=== PATIENT | male | born 1950 | race Caucasian/White ===

== ENCOUNTER 2024-12-20 06:28 | Day surgery (SDC) | payer MEDICARE, OTHER, SELFPAY ==
[2024-12-18 13:34] VITALS: BMI 26.8
[2024-12-20] VITALS (22 sets, daily range): BP systolic 99–174; BP diastolic 47–88; BMI 26.8
[2024-12-20] MEDS: CYSVIEW KIT 100 MG INTRAVES (07:55)
[2024-12-20] MEDS: NORMOSOL-R/PLASMALYTE-A 1000 IV (08:07)
[2024-12-20] MEDS: SYRINGE NON-PUMP 50 ML IRRIG ×2 (10:31→10:32)
[2024-12-20] MEDS: SYRINGE NON-PUMP 50 MG IRRIG ×2 (10:31→10:32)
[2024-12-20] MEDS: Pyridium 200 MG PO (10:53)
[2024-12-20] MEDS: VALIUM INJECTION 5 MG IV ×3 (10:54→20:09)
[2024-12-20] MEDS: SUBLIMAZE 50 MCG IV ×2 (12:08→12:22)
[2024-12-20] MEDS: DETROL LA 4 MG PO (12:50)
[2024-12-20] MEDS: COLACE 100 MG PO (16:03)
[2024-12-20] MEDS: FLOMAX 0.8 MG PO (17:36)
[2024-12-20] MEDS: NEURONTIN 300 MG PO (21:29)
[2024-12-20 22:46] LABS: Hepatitis B Surface Antigen Negative (Negative)
[2024-12-20 22:55] LABS: HIV Combo Negative (Negative)
[2024-12-20 23:03] LABS: Hepatitis C Antibody Reactive (Negative)
[2024-12-21] MEDS: VALIUM INJECTION 5 MG IV (01:18)
[2024-12-21] MEDS: PEPCID 40 MG PO (01:35)
[2024-12-21 03:09] VITALS: BP 117/55
[2024-12-21] MEDS: COLACE 100 MG PO ×2 (06:17→10:53)
[2024-12-21 07:15] VITALS: BP 126/62
[2024-12-21 07:50] LABS: Hematocrit 33.7 % (39.0-52.0); Hemoglobin 11.9 g/dL (13.0-18.0)
[2024-12-21] MEDS: NORVASC 10 MG PO (08:27)
[2024-12-21] MEDS: MOBIC 15 MG PO (08:27)
[2024-12-21] MEDS: ZESTRIL 10 MG PO (08:27)
[2024-12-21] MEDS: TOPROL XL 100 MG PO (08:27)
[2024-12-21 08:38] LABS: Blood Urea Nitrogen 15 mg/dl (9-20); Calcium 8.5 mg/dl (8.4-10.2); Carbon Dioxide 27 mmol/L (22-30); Chloride 91 mmol/L (98-107); Estimated Creatinine Clearance 117 ml/min; Glucose 104 mg/dl (70-99); Potassium 4.3 mmol/L (3.5-5.1); Sodium 125 mmol/L (135-145); eGFR > 60.00
--- NOTE | 2024-12-21 09:50 | W.PN.URO.CBU ---
Today's Communication / Plan
-
voiding trial then discharge
Assessment / Plan
-
improved
expected degree of hematuria
Diagnosis
-
Date of Service: December 21, 2024
-
Patient Diagnosis: Bladder Cancer s/p TURBT
Post Op Day: 1
Subjective
-
modest pain/catheter bother
Objective
-
Vital Signs
Temp Pulse Resp BP Pulse Ox
98.6 F 76 16 126/62 93
12/21/24 07:15 12/21/24 07:15 12/21/24 07:15 12/21/24 07:15 12/21/24 07:15
Intake and Output
12/20/24 12/21/24 12/22/24
06:59 06:59 06:59
Intake Total 1300 / 1300
Output Total 3175 / 3175
Balance -1875 / -1875
Intake:
Oral fluids 800 / 800
IV fluids (Total) 500 / 500
Normosol 500 / 500
Output:
Urine, Watkins 300 / 300
True Urine Output from CBI 2875 / 2875
Laboratory Results
12/21/24 07:25
12/21/24 07:25
Physical Exam
-
Abdomen - soft, non-tender, positive bowel sounds, no distention
Genitalia - light red outflow with CBI via Watkins
--- NOTE | 2024-12-21 09:57 | CM ---
Cm reviewed medical records. CM met with patient in room. Patient confirmed demographics. Patient lives alone, but his brother will be his ride home and support. Patient does not have a history of VN, SNF or DME.
Patient is active with his PCP. Patient confirmed medication coverage and uses [facility] for medication services. Plan for fung dc and void trial
PLAN: home no needs
[2024-12-21 11:40] VITALS: BP 145/76
[2024-12-21] MEDS: Pyridium 200 MG PO (13:12)
[2024-12-21 14:56] VITALS: BP 154/71
== END 2024-12-21 15:36 | disposition home or self-care (01) ==
LOC: SDS 06:28
PROVIDERS: ATTENDING PHYSICIAN Specialist
DX: C67.9 Malignant neoplasm of bladder, unspecified (principal); N35.919 Unspecified urethral stricture, male, unspecified site
CPT/HCPCS: 52240; 51720; C9738; 88307; 80048; 85014; 85018; 86803; 87340; 87389; A9589; J9201

== ENCOUNTER 2024-12-22 05:55 | Emergency (ER) | payer MEDICARE, OTHER, SELFPAY ==
[2024-12-22 05:57] VITALS: BP 122/79
--- NOTE | 2024-12-22 06:14 | ED.GENMED ---
History of Present Illness
General
Chief Complaint: Urinary Symptoms
Time Seen by Provider: 12/22/24 06:13
History of Present Illness
History of Present Illness:
TIME OF INITIAL ENCOUNTER: 6:25 AM
HPI: The patient had transurethral resection of bladder tumors on 12/20/2024 along with white bluelight cystoscopy as an intravesical chemotherapy instillation. Last night into this morning, he developed urinary retention. He states that he feels
that he has a full bladder. He has been trying to drink fluids to 'flush it out' but has been unable to void other than small drops of blood. He is not on anticoagulation or antiplatelets. No fevers.
EXAM:
GENERAL: Well appearing in no distress
HEENT: Moist oral mucosa
CARDIOVASCULAR: No murmurs, normal heart rate, regular rhythm, No chest wall tenderness
PULMONARY: No respiratory distress, breath sounds are clear and equal
ABDOMEN: Soft with no peritoneal signs, no tenderness, bladder distention noted
NEUROLOGIC: Excellent strength all extremities, no coordination deficits
PSYCHIATRIC: Appropriate mental status, normal insight and judgement
EXTREMITIES: Nontender, no edema, moves all extremities equally
SKIN: No rash, no lesions
NUMBER AND COMPLEXITY OF PROBLEMS ADDRESSED AT THE ENCOUNTER
� Chronic conditions affecting care: High blood pressure, BPH
� Acute Exacerbation and/or Progression of Chronic Illness: This is an acute problem
� Differential Diagnosis includes: Hemorrhagic cystitis, postop complication, postoperative blood clot, urinary retention
AMOUNT AND/OR COMPLEXITY OF DATA TO BE REVIEWED AND ANALYZED
� I performed an independent evaluation of and my interpretation is:
EKG:
CT:
X-rays:
Laboratory Studies: Urinalysis shows greater than 100 red cells and 6-10 cells.
Other:
� Review of other/old records: I reviewed the operative note from Dr. Taveras from 2 days ago.
� Clinical information was obtained by an independent historian: I spoke to at bedside
� Prescriptions/Medications Considered but not given:
� Further testing considered but not performed: No indication for imaging at this time
RISK OF COMPLICATIONS AND/OR MORBIDITY OR MORTALITY OF PATIENT MANAGEMENT
� Social determinants of health affecting care:
� Discussion with other providers: I spoke to Dr. Conley who recommends patient receive a dose of Rocephin before he goes home
� Escalation of care including admission/observation vs risk of discharge considered: Upon arrival, patient had a bladder scan of over [address] Watkins catheter. The patient drained over a liter of bloody urine
however it started pinking up quite a bit try prior to discharge. He appears comfortable on reassessment.
ANY OTHER UPDATES:
Phy Exam
Physical Exam
Physical Exam:
See HPI
Course
Orders/Labs/Results
Orders:
Orders
12/22/24 06:24
Bladder Scan- Treatment ONCE
12/22/24 06:25
Watkins Placement- Treatment ONCE
Reason for insertion: Acute Retention
12/22/24 07:04
Urinalysis Reflex To Culture Urgent
Date Specimen was Collected: 12/22/24
Time Specimen was Collected: 06:56
Urine Microscopic Reflex Cult Urgent
Urine Culture Urgent
LEONOR Source: U
Specimen Description:
Date Specimen was Collected: 12/22/24
Time Specimen was Collected: 06:56
12/22/24 08:50
CefTRIAXone [Rocephin] 1,000 mg IV NOW STA
Abnormal Lab Results
12/22/24
07:04
Ur Occult Blood Reflex 4+ A
(Negative)
Leukocyte Esterase Rfl 3+ A
(Negative)
Urine RBC >100 A /HPF
(0-2)
Urine Albumin (Reflex) 4+ A
(Neg - Trace)
Vital Signs
Initial and Last Documented VS:
Initial Vital Signs
Temp Pulse Resp BP Pulse Ox
36.6 C 78 22 122/79 99
12/22/24 05:57 12/22/24 05:57 12/22/24 05:57 12/22/24 05:57 12/22/24 05:57
Last Documented Vital Signs
Temp Pulse Resp BP Pulse Ox
36.6 C 78 16 122/79 99
12/22/24 05:57 12/22/24 05:57 12/22/24 08:00 12/22/24 05:57 12/22/24 05:57
*Critical Care Note
Total Time (30-74mins, 75-104mins- exclusive of procedures): Not Applicable
ED Attending Note
-
Portions of this chart may have been created with voice recognition software.� Occasional wrong word or��sound alike� substitutions may have occurred due to the inherent limitations of voice recognition software.
Discharge Plan
Departure
Patient Disposition: Home (Routine Discharge)
Date of Disposition: 12/22/24
Time of Disposition: 08:51
Patient with high blood pressure during this ER visit?: Yes
Discharge Problem:
Acute urinary retention
Prescriptions:
No Action
meloxicam 15 mg Tablet
15 mg PO DAILY
metoprolol succinate 100 mg Tablet Extended Release 24 Hr
100 mg PO DAILY
acetaminophen 650 mg Tablet Extended Release
1,300 mg PO Q12H PRN (Reason: Back Paim)
tamsulosin 0.4 mg Capsule
0.8 mg PO QPM
amlodipine 10 mg Tablet
10 mg PO DAILY
lisinopril 10 mg Tablet
10 mg PO DAILY
gabapentin 300 mg Capsule
300 mg PO HS
albuterol sulfate 90 mcg/actuation Hfa Aerosol Inhaler
2 puff INHALATION PRN PRN (Reason: SOBWHeezes)
gabapentin 100 mg Tablet
100 mg PO DAILYPRN PRN (Reason: Pain)
sodium chloride 1,000 mg Tablet,Soluble
1,000 mg PO 7XD
Hyaluronic Acid (chond-collgn) 250 mg capsule
500 mg PO QPM
Uribel Tabs 81.6-0.12-10.8 mg tablet
1 tab PO QID PRN (Reason: bladder irritation/pain) Qty: 40 5RF
Referrals:
Guillermo Taveras MD [Active] - Follow up in 2-3 days
UNKNOWN - PT DOES,NOT KNOW [Family Provider] -
Activity Restrictions/Additional Instructions:
We drained over 1 L of bloody urine today. I spoke to Dr. Conley. He wanted you to get a one-time dose of Rocephin before you go home. However, the urinalysis did not show any obvious signs of infection (relatively low number of white blood
cells in the urine). Follow-up with Dr. Taveras. Return here if worse or other concerns.
Interventions
Interventions:
*Risk Screen - Suicide Last Done: 12/22/24 06:00
*General Assessment Last Done: 12/22/24 06:47
*Neglect/Abuse Screening Last Done: 12/22/24 06:48
*ED- Fall Risk Assessment Last Done: 12/22/24 06:47
*ED COVID-19 Vaccine History Last Done: 12/22/24 06:47
ED-Male Genitourinary Assessment Last Done: 12/22/24 06:41
Discharge Date and Time
Print Language: JAPANESE
[2024-12-22 06:41] VITALS: BMI 28.6
[2024-12-22 08:12] LABS: Urine Albumin 4+ (Neg - Trace); Urine Bilirubin Negative (Negative); Urine Character Bloody (Clear); Urine Color Red; Urine Glucose Negative (Negative); Urine Ketone Negative (Negative); Urine Leukocyte 3+ (Negative); Urine Nitrite Negative (Negative); Urine Occult Blood 4+ (Negative); Urine Urobilinogen Negative (Neg - 1+)
[2024-12-22 08:36] LABS: Urine Red Blood Cell >100 /HPF (0-2); Urine Squamous Cell 0-2 /LPF (Few)
[2024-12-22] MEDS: ROCEPHIN 1000 MG IV (09:06)
[2024-12-22 09:11] VITALS: BP 142/57
== END 2024-12-22 09:36 | disposition home or self-care (01) ==
LOC: EMR 05:55
PROVIDERS: EMERGENCY PHYSICIAN Emergency Medicine
DX: R33.9 Retention of urine, unspecified (principal)
CPT/HCPCS: 99282; 96374; 81003; 81015; 87086

== ENCOUNTER → 2025-01-05 12:10 | Outpatient (REF) | payer MEDICARE, OTHER, SELFPAY | LOC: RAD 12:10 | PROVIDERS: ATTENDING PHYSICIAN Specialist; FAMILY PHYSICIAN Family Medicine | DX: C67.9 Malignant neoplasm of bladder, unspecified (principal) | CPT/HCPCS: 74177; Q9967 ==

== ENCOUNTER → 2025-01-17 16:00 | Outpatient (REF) | payer MEDICARE, OTHER, SELFPAY | LOC: RAD 16:00 | PROVIDERS: ATTENDING PHYSICIAN Internal Medicine Hematology & Oncology; FAMILY PHYSICIAN Family Medicine | DX: C67.4 Malignant neoplasm of posterior wall of bladder (principal) | CPT/HCPCS: 71260; Q9967 ==

== ENCOUNTER → 2025-01-22 10:44 | Outpatient (REF) | payer MEDICARE, OTHER, SELFPAY ==
[2025-01-22 11:07] VITALS: BP 132/73; BP_SYST 57
[2025-01-22] MEDS: ANCEF 10 IV (11:23)
[2025-01-22 12:40] VITALS: BP 124/68
== END ==
LOC: RADI 10:44
PROVIDERS: ATTENDING PHYSICIAN Internal Medicine Hematology & Oncology
DX: C67.4 Malignant neoplasm of posterior wall of bladder (principal)
CPT/HCPCS: 36561; 76937; 77001; 99152; 99153; C1788

== ENCOUNTER → 2025-03-07 14:10 | Outpatient (REF) | payer MEDICARE, OTHER, SELFPAY | LOC: RAD 14:10 | PROVIDERS: ATTENDING PHYSICIAN Internal Medicine Hematology & Oncology; FAMILY PHYSICIAN Family Medicine | DX: R06.00 Dyspnea, unspecified (principal); C67.4 Malignant neoplasm of posterior wall of bladder; E78.49 Other hyperlipidemia; I70.0 Atherosclerosis of aorta | CPT/HCPCS: 71275; 75571; 93005; Q9967 ==

== ENCOUNTER → 2025-03-13 16:24 | Outpatient (REF) | payer MEDICARE, OTHER, SELFPAY ==
[2025-03-13 15:42] LABS: Hematocrit 28.8 % (39.0-52.0); Hemoglobin 9.9 g/dL (13.0-18.0); Mean Corp Hgb Conc. 34.4 g/dL (33.0-37.0); Mean Corpuscular Volume 93.5 fL (80.0-94.0); Platelet Count 234 10^3/uL (130-400); Red Cell Dist. Width 15.4 % (11.5-14.5)
[2025-03-13 15:55] LABS: Absolute Neutrophils -Man Diff 39.3 10^3/uL (1.4-6.5)
[2025-03-13 15:56] LABS: Anisocytosis 1+; Macrocytosis 2+; Microcytosis Slight; Normal RBC Morphology No; Platelets Checked Yes
[2025-03-13 15:57] LABS: Polychromasia Slight
[2025-03-13 15:58] LABS: Total Cells Counted 100
== END ==
LOC: OIDL 16:24
PROVIDERS: ATTENDING PHYSICIAN Internal Medicine Hematology & Oncology
DX: C67.4 Malignant neoplasm of posterior wall of bladder (principal); Z51.12 Encounter for antineoplastic immunotherapy; Z13.29 Encounter for screening for other suspected endocrine disorder
CPT/HCPCS: 85025

== ENCOUNTER → 2025-03-19 11:41 | Outpatient (REF) | payer MEDICARE, OTHER, SELFPAY ==
[2025-03-19 12:27] LABS: Hematocrit 27.1 % (39.0-52.0); Hemoglobin 9.5 g/dL (13.0-18.0); Mean Corp Hgb Conc. 35.1 g/dL (33.0-37.0); Mean Corpuscular Volume 91.9 fL (80.0-94.0); Nucleated Red Blood Cells % 0 % (-); Platelet Count 228 10^3/uL (130-400); Red Cell Dist. Width 14.6 % (11.5-14.5)
[2025-03-19 13:06] LABS: ALT (SGPT) 43 U/L (0-50); AST (SGOT) 32 U/L (17-59); Albumin 4.0 g/dl (3.5-5.0); Alkaline Phosphatase 87 U/L (38-126); Blood Urea Nitrogen 20 mg/dl (9-20); Calcium 9.0 mg/dl (8.4-10.2); Carbon Dioxide 25 mmol/L (22-30); Chloride 96 mmol/L (98-107); Glucose 90 mg/dl (70-99); Magnesium 1.8 mg/dl (1.6-2.3); Potassium 5.4 mmol/L (3.5-5.1); Sodium 126 mmol/L (135-145); Total Protein 6.3 g/dl (6.3-8.2); eGFR > 60.00
[2025-03-19 13:36] LABS: TSH 1.94 uIU/ml (0.47-4.68)
== END ==
LOC: REG 11:41
PROVIDERS: ATTENDING PHYSICIAN Internal Medicine Hematology & Oncology; FAMILY PHYSICIAN Family Medicine
DX: C67.4 Malignant neoplasm of posterior wall of bladder (principal); R53.82 Chronic fatigue, unspecified
CPT/HCPCS: 36415; 80053; 83735; 84443; 85025

== ENCOUNTER → 2025-03-28 13:13 | Outpatient (REF) | payer MEDICARE, OTHER, SELFPAY ==
[2025-03-28 12:44] LABS: Blood Urea Nitrogen 8 mg/dl (9-20); Calcium 8.5 mg/dl (8.4-10.2); Carbon Dioxide 27 mmol/L (22-30); Chloride 96 mmol/L (98-107); Glucose 153 mg/dl (70-99); Magnesium 1.3 mg/dl (1.6-2.3); Potassium 4.0 mmol/L (3.5-5.1); Sodium 127 mmol/L (135-145); eGFR > 60.00
[2025-03-28 13:10] LABS: Hematocrit 21.1 % (39.0-52.0); Hemoglobin 7.2 g/dL (13.0-18.0); Mean Corp Hgb Conc. 34.1 g/dL (33.0-37.0); Mean Corpuscular Volume 93.8 fL (80.0-94.0); Platelet Count 64 10^3/uL (130-400); Red Cell Dist. Width 15.3 % (11.5-14.5)
[2025-03-28 13:19] LABS: Absolute Neutrophils -Man Diff 37.4 10^3/uL (1.4-6.5)
[2025-03-28 13:20] LABS: Platelets Checked Yes
[2025-03-28 13:21] LABS: Anisocytosis Slight; Hypochromasia 1+; Normal RBC Morphology No; Polychromasia 1+; Total Cells Counted 100
== END ==
LOC: OIDL 13:13
PROVIDERS: ATTENDING PHYSICIAN Internal Medicine Hematology & Oncology
DX: C67.4 Malignant neoplasm of posterior wall of bladder (principal); Z51.12 Encounter for antineoplastic immunotherapy; Z13.29 Encounter for screening for other suspected endocrine disorder
CPT/HCPCS: 80048; 82728; 83540; 83550; 83735; 85025; 86850; 86900; 86901; 86920

== ENCOUNTER 2025-03-29 08:25 | Outpatient (RCR) | payer MEDICARE, OTHER, SELFPAY ==
[2025-03-28 16:04] LABS: Ferritin 423.0 ng/ml (17.9-464.0)
[2025-03-28 16:53] LABS: Iron 61 ug/dl (49-181)
[2025-03-28 17:02] LABS: Total Iron Binding Capacity 319 ug/dl (261-462)
[2025-03-29 08:50] VITALS: BP 145/70
[2025-03-29 09:15] VITALS: BP 145/70
[2025-03-29 09:33] VITALS: BP 145/64
[2025-03-29 11:35] VITALS: BP 165/87
== END 2025-04-05 23:59 | disposition home or self-care (01) ==
LOC: OID 08:25
PROVIDERS: ATTENDING PHYSICIAN Internal Medicine Hematology & Oncology; FAMILY PHYSICIAN Family Medicine
DX: C67.4 Malignant neoplasm of posterior wall of bladder (principal); Z51.12 Encounter for antineoplastic immunotherapy; Z13.29 Encounter for screening for other suspected endocrine disorder
CPT/HCPCS: 36430; 82728; 83540; 83550; 86850; 86900; 86901; 86920; P9016

== ENCOUNTER → 2025-04-02 09:56 | Outpatient (REF) | payer MEDICARE, OTHER, SELFPAY ==
[2025-04-02 11:17] LABS: ALT (SGPT) 17 U/L (0-50); AST (SGOT) 28 U/L (17-59); Albumin 4.3 g/dl (3.5-5.0); Alkaline Phosphatase 177 U/L (38-126); Blood Urea Nitrogen 15 mg/dl (9-20); Calcium 9.1 mg/dl (8.4-10.2); Carbon Dioxide 24 mmol/L (22-30); Chloride 98 mmol/L (98-107); Glucose 95 mg/dl (70-99); Magnesium 1.5 mg/dl (1.6-2.3); Potassium 4.4 mmol/L (3.5-5.1); Sodium 132 mmol/L (135-145); Total Protein 6.4 g/dl (6.3-8.2); eGFR > 60.00
[2025-04-02 11:42] LABS: Hematocrit 26.8 % (39.0-52.0); Hemoglobin 9.1 g/dL (13.0-18.0); Mean Corp Hgb Conc. 34.0 g/dL (33.0-37.0); Mean Corpuscular Volume 95.7 fL (80.0-94.0); Platelet Count 245 10^3/uL (130-400); Red Cell Dist. Width 19.0 % (11.5-14.5)
[2025-04-02 11:43] LABS: Absolute Neutrophils -Man Diff 40.4 10^3/uL (1.4-6.5); Anisocytosis 1+; Normal RBC Morphology No; Ovalocytes Slight; Platelets Checked Yes; Total Cells Counted 100
[2025-04-02 11:45] LABS: TSH 1.44 uIU/ml (0.47-4.68)
== END ==
LOC: REG 09:56
PROVIDERS: ATTENDING PHYSICIAN Internal Medicine Hematology & Oncology; FAMILY PHYSICIAN Family Medicine
DX: C67.4 Malignant neoplasm of posterior wall of bladder (principal); E03.9 Hypothyroidism, unspecified
CPT/HCPCS: 36415; 80053; 83735; 84443; 85025

== ENCOUNTER → 2025-04-09 10:40 | Outpatient (REF) | payer MEDICARE, OTHER, SELFPAY ==
[2025-04-09 12:04] LABS: Hematocrit 25.4 % (39.0-52.0); Hemoglobin 8.5 g/dL (13.0-18.0); Mean Corp Hgb Conc. 33.5 g/dL (33.0-37.0); Mean Corpuscular Volume 93.7 fL (80.0-94.0); Nucleated Red Blood Cells % 0 % (-); Platelet Count 228 10^3/uL (130-400); Red Cell Dist. Width 17.6 % (11.5-14.5)
[2025-04-09 12:26] LABS: ALT (SGPT) 39 U/L (0-50); AST (SGOT) 28 U/L (17-59); Albumin 4.0 g/dl (3.5-5.0); Alkaline Phosphatase 72 U/L (38-126); Blood Urea Nitrogen 22 mg/dl (9-20); Calcium 9.3 mg/dl (8.4-10.2); Carbon Dioxide 27 mmol/L (22-30); Chloride 96 mmol/L (98-107); Glucose 95 mg/dl (70-99); Magnesium 1.5 mg/dl (1.6-2.3); Potassium 5.6 mmol/L (3.5-5.1); Sodium 127 mmol/L (135-145); Total Protein 6.3 g/dl (6.3-8.2); eGFR > 60.00
[2025-04-09 13:01] LABS: TSH 1.53 uIU/ml (0.47-4.68)
== END ==
LOC: REG 10:40
PROVIDERS: ATTENDING PHYSICIAN Internal Medicine Hematology & Oncology
DX: C67.4 Malignant neoplasm of posterior wall of bladder (principal); E03.9 Hypothyroidism, unspecified
CPT/HCPCS: 36415; 80053; 83735; 84443; 85025

== ENCOUNTER → 2025-04-23 10:28 | Outpatient (REF) | payer MEDICARE, OTHER, SELFPAY ==
[2025-04-23 11:52] LABS: ALT (SGPT) 16 U/L (0-50); AST (SGOT) 27 U/L (17-59); Albumin 4.3 g/dl (3.5-5.0); Alkaline Phosphatase 153 U/L (38-126); Blood Urea Nitrogen 15 mg/dl (9-20); Calcium 9.1 mg/dl (8.4-10.2); Carbon Dioxide 26 mmol/L (22-30); Chloride 96 mmol/L (98-107); Glucose 75 mg/dl (70-99); Magnesium 1.4 mg/dl (1.6-2.3); Potassium 5.0 mmol/L (3.5-5.1); Sodium 130 mmol/L (135-145); Total Protein 6.6 g/dl (6.3-8.2); eGFR > 60.00
[2025-04-23 11:59] LABS: Hematocrit 25.1 % (39.0-52.0); Hemoglobin 8.2 g/dL (13.0-18.0); Mean Corp Hgb Conc. 32.7 g/dL (33.0-37.0); Mean Corpuscular Volume 99.6 fL (80.0-94.0); Platelet Count 254 10^3/uL (130-400); Red Cell Dist. Width 21.8 % (11.5-14.5)
[2025-04-23 12:11] LABS: Absolute Neutrophils -Man Diff 36.6 10^3/uL (1.4-6.5); Anisocytosis Slight; Normal RBC Morphology No; Platelets Checked Yes
[2025-04-23 12:12] LABS: Polychromasia Slight; Total Cells Counted 100
[2025-04-23 12:23] LABS: TSH 1.27 uIU/ml (0.47-4.68)
== END ==
LOC: REG 10:28
PROVIDERS: ATTENDING PHYSICIAN Internal Medicine Hematology & Oncology; FAMILY PHYSICIAN Family Medicine
DX: C67.4 Malignant neoplasm of posterior wall of bladder (principal); E78.5 Hyperlipidemia, unspecified
CPT/HCPCS: 36415; 80053; 83735; 84443; 85025

== ENCOUNTER → 2025-05-01 07:40 | Outpatient (REF) | payer MEDICARE, OTHER, SELFPAY | LOC: RAD 07:40 | PROVIDERS: ATTENDING PHYSICIAN Internal Medicine Hematology & Oncology; FAMILY PHYSICIAN Family Medicine | DX: C67.4 Malignant neoplasm of posterior wall of bladder (principal); Z51.12 Encounter for antineoplastic immunotherapy; Z13.49 Encounter for screening for other developmental delays | CPT/HCPCS: 71260; 74177; Q9967 ==

== ENCOUNTER → 2025-05-03 09:23 | Outpatient (REF) | payer MEDICARE, OTHER, SELFPAY | LOC: HWRCS 09:23 | PROVIDERS: ATTENDING PHYSICIAN Internal Medicine Cardiovascular Disease; FAMILY PHYSICIAN Family Medicine | DX: I10 Essential (primary) hypertension (principal) | CPT/HCPCS: 93306 ==

== ENCOUNTER → 2025-05-21 10:54 | Outpatient (REF) | payer MEDICARE, OTHER, SELFPAY ==
[2025-05-21 11:37] LABS: Hematocrit 28.9 % (39.0-52.0); Hemoglobin 9.9 g/dL (13.0-18.0); Mean Corp Hgb Conc. 34.3 g/dL (33.0-37.0); Mean Corpuscular Volume 102.8 fL (80.0-94.0); Nucleated Red Blood Cells % 0 % (-); Platelet Count 196 10^3/uL (130-400); Red Cell Dist. Width 14.8 % (11.5-14.5)
[2025-05-21 12:35] LABS: ALT (SGPT) 19 U/L (0-50); AST (SGOT) 24 U/L (17-59); Albumin 4.3 g/dl (3.5-5.0); Alkaline Phosphatase 37 U/L (38-126); Blood Urea Nitrogen 21 mg/dl (9-20); Calcium 9.3 mg/dl (8.4-10.2); Carbon Dioxide 27 mmol/L (22-30); Chloride 98 mmol/L (98-107); Glucose 96 mg/dl (70-99); Magnesium 1.6 mg/dl (1.6-2.3); Potassium 4.9 mmol/L (3.5-5.1); Sodium 131 mmol/L (135-145); Total Protein 6.8 g/dl (6.3-8.2); eGFR > 60.00
[2025-05-21 13:03] LABS: TSH 0.93 uIU/ml (0.47-4.68)
== END ==
LOC: REG 10:54
PROVIDERS: ATTENDING PHYSICIAN Internal Medicine Hematology & Oncology; FAMILY PHYSICIAN Family Medicine
DX: E03.9 Hypothyroidism, unspecified (principal); C67.4 Malignant neoplasm of posterior wall of bladder
CPT/HCPCS: 36415; 80053; 83735; 84443; 85025

== ENCOUNTER 2025-06-13 06:00 | Inpatient (IN) | payer MEDICARE, OTHER, SELFPAY ==
--- NOTE | 2025-05-23 11:23 | PTCARENOTE ---
Argelia Avalos (Wound Ostomy Specialist) was notified of request by to see patient prior to surgery.
[2025-06-04 14:18] VITALS: BMI 27.1
[2025-06-13] VITALS (21 sets, daily range): BP systolic 50–156; BP diastolic 52–68; BMI 27.1; BMI 27.8
[2025-06-13] MEDS: NEOMYCIN ENEMA 1 BOTTLE RECTAL (06:48)
[2025-06-13] MEDS: NORMOSOL-R/PLASMALYTE-A 1000 IV ×2 (07:04→15:45)
[2025-06-13] MEDS: HEPARIN 5000 UNITS SC (07:04)
--- NOTE | 2025-06-13 13:19 | HPS.HSE ---
Addendum entered and electronically signed by Edward Barba MD 06/13/25 19:17:
This is an addendum to H&P written by Ana Casas on 06/13/2025. �Patient seen and examined independently with FIELD ADMINISTRATIVE ASSISTANT.
75-year-old male past medical history of bladder cancer status post chemotherapy, BPH, hypertension, hyperlipidemia, anxiety, former smoker, pericardial effusion, spinal stenosis, gallstones, diastolic murmur, mitral insufficiency, abdominal aortic
atherosclerosis, chronic anemia presenting with scheduled cystectomy, prostatectomy and partial ileum removal with placement of ileal conduit. �He has ileal conduit, Watkins catheter, TONI drain.
Vital signs normal except for hypoxemia 93%.
Patient noted to have crepitus of entire left lung. �Pain in the left upper chest.
Labs show hemoglobin of 11.5 improved from previously. �Chest x-ray shows bilateral subcutaneous emphysema moderate air under the right hemidiaphragm.
Continue to monitor TONI drain, urine output, trend hemoglobin. �Subcutaneous emphysema likely secondary to anesthesia. �Monitor for hypoxemia. �Urology following.
Original Note:
Family Physician
-
Family Physician: Marina Lizarraga
Chief Complaint
-
Postop robotic bladder removal/prostatectomy, part of ileum with urostomy creation, left-sided TONI drain and urethral catheter.
History of Present Illness
75-year-old male with history of bladder cancer status post chemo x 4 sessions [facility]. He is currently status post robotic bladder removal/prostatectomy, part of ileum with urostomy creation, left-sided TONI drain and urethral catheter.
On exam he has left-sided crepitus on the entire left side of his lung he reports some upper left-sided pain he is maintaining oxygen saturation at 93% a stat chest x-ray is ordered he is hemodynamically stable with blood pressure 123/52. He denies
shortness of breath, fever, chills, abdominal pain, nausea, vomiting.
He has past medical history bladder cancer chemo x 4 sessions, anemia secondary to chemo, BPH, HTN, HLD, anxiety, former smoker 30-year 1 pack a day, former alcoholic quit 1991, pericardial effusion spinal stenosis, gallstones, diastolic murmur,
mitral insufficiency, abdominal aortic atherosclerosis,
Medical History
Past Medical History
Past Medical History: Reports Other
Additional Past Medical History:
bladder cancer
BPH
HTN
HLD
anxiety
former smoker quit 1999
Former alcoholic quit 1991
pericardial effusion unknown year
Chronic back pain with sciatica
spinal stenosis
gallstones
diastolic murmur
mitral insufficiency
abdominal aortic atherosclerosis
Past Surgical History: Reports Other
Additional Past Surgical History:
BPH status post TURP 12/19/2024
Left great toe hallux repair
Spinal foraminotomy
Tonsillectomy
Nasal surgery
Social History
Tobacco: Former Smoker (30-year 1 pack a day quit 1999)
Alcohol: Former (Quit 1991)
Personal: Single
Living: Alone
Employment: Retired
Family History
Family History: Other (Brother healthy, mother breast cancer, father melanoma mets to brain)
Allergies / Home Medications
Allergies reflects when Allergies were last updated in [facility].
Home Medications with original date entered in [facility]
Allergy/Medication List:
Allergies
Allergy/AdvReac Type Severity Reaction Status Date / Time
No Known Drug Allergies Allergy NA Verified 06/13/25 06:35
pollen extracts Allergy congestion Verified 06/13/25 06:35
Home Medications
albuterol sulfate 90 mcg/actuation aerosol inhaler 2 puff inhalation PRN PRN SOBWHeezes 12/18/24
amlodipine 10 mg tablet 10 mg PO DAILY 12/18/24
gabapentin 300 mg capsule 300 mg PO HS 12/18/24
meloxicam 15 mg tablet 15 mg PO DAILY 12/18/24
metoprolol succinate 100 mg tablet,extended release 24 hr 100 mg PO DAILY 12/18/24
sodium chloride 1,000 mg soluble tablet 1,000 mg PO 7XD Dizziness 12/18/24
atorvastatin 10 mg tablet 10 mg PO QPM 06/06/25
docusate sodium 100 mg capsule (Colace) 100 - 200 mg PO DAILY 06/06/25
lorazepam 0.5 mg tablet 0.5 mg PO PRN PRN anxiety 06/06/25
sertraline 25 mg tablet 75 mg PO DAILY 06/06/25
gabapentin 100 mg tablet 100 mg PO PRN PRN pain 06/13/25
lisinopril 10 mg tablet 10 mg PO DAILY 06/13/25
tamsulosin 0.4 mg capsule 0.4 mg PO DAILY 06/13/25
Review of Systems
-
History Source: Patient
Constitutional: Reports Fatigue (Postanesthesia); Denies Fever or Chills
EENT: Denies Sore Throat or Runny Nose
Respiratory: Denies Cough or Trouble Breathing
Cardiac: Reports Chest Pain (Left upper chest on palpation); Denies Diaphoresis or Palpitations
Abdomen/GI: Denies Abdominal Pain, Nausea or Vomiting
: Reports Watkins (Draining scant strawberry in color) and Other (Ileal conduit draining scant strawberry in color, TONI drain scant strawberry in color)
Musculoskeletal: Denies Joint Pain or Edema
Skin: Denies Itching or Rash
Neurological: Denies Dizzy or Headache
Endocrine: Reports No Symptoms
Hematologic/Lymphatic: Reports No Symptoms
Psych: Reports Calm
Physical Exam
Vital Signs
Vital Signs
Temp Pulse Resp BP Pulse Ox
98.7 F 58 16 150/66 97
06/13/25 06:40 06/13/25 06:40 06/13/25 06:40 06/13/25 06:40 06/13/25 06:40
Physical Exam
General: Conversant and Other (Patient currently slightly drowsy status post anesthesia being examined in the PACU); No Pain, Fever or Chills
HEENT: NormoCephalic, Anicteric, Moist mucous membranes, PERRLA, [place] Conjunctivae and No Ptosis
Respiratory: Other (Entire left lung crepitus post anesthesia/intubation, right lung clear to auscultation)
Cardiac: S1/S2 and Regular Rhythm; No Murmur, Rub, Gallop or Peripheral Edema
Breast: Deferred by me
GI: Soft, Non Tender, Non Distended, Normal Bowel Sounds and Other (Ileal conduit draining scant strawberry in color, TONI drain scant strawberry in color)
Genito-urinary: Watkins (Draining scant shoulder in color) and Other (Ileal conduit draining scant strawberry in color, TONI drain scant strawberry in color)
Musculoskeletal: No Clubbing, No Cyanosis and No Edema
Skin: Warm and Dry; No Rash
Neuro: Cranial Nerves Intact, No Sensory Deficits and Other (Drowsy but oriented x 3); No Slurred Speech, Facial Droop, Tremors or Sedated
Psych: Calm
Impression/Plan
-
Impression/plan:
Admit to ICU
#Bladder cancer status post robotic radical cystectomy/prostatectomy/part of ileum with ileal conduit urinary diversion
#History of chemo x 4 sessions with [facility]
Given preop Rocephin 2000 mg
-Monitor TONI drain drainage
-Continue urethral catheter
-Monitor drainage from ileal conduit
- Consult Dr. Taveras
- IV Toradol, tramadol, IV Dilaudid IV Zofran IV Protonix
-Stat H&H, CMP
- Follow CBC, BMP
#Left-sided crepitus status post anesthesia
#History former smoker 31 pack a day quit 1999
93% RA slight left-sided pain
-Check stat chest x-ray
-Ventilating Engineer aware Dr. Calzada
#Anemia�macrocytic likely secondary to recent chemo x 4 sessions
Hgb11.5
-Prior Hgb 9.9, MCV 102.8 on 05/21/2025
Will monitor CBC
#HTN
BP 150/66
-Continue amlodipine 10 mg daily, metoprolol succinate 100 mg daily lisinopril 10 mg daily with hold parameters
#HLD
-Continue atorvastatin 10 mg every afternoon
#Anxiety
-Continue lorazepam 0.5 mg as needed anxiety, Zoloft 75 mg daily
#Diastolic murmur
#Mild/moderate MR/TR
#Abdominal aortic atherosclerosis
#History of pericardial effusion in past unsure year
-Follows with [facility]
2D echo 05/03/2025: EF 65 to 70%, normal RVS RV SF, no AR, mild to moderate MR/TR PASP 54 mmHg
#Chronic back pain/sciatica/spinal stenosis
-Continue gabapentin
#BPH status post TURP 12/19/2024
-Status post prostatectomy today 06/13/2025
-Stop Flomax
#History former alcoholic quit 1991
DVT prophylaxis
Subcu Lovenox
Full code his brother rib is his emergency contact
[2025-06-13] MEDS: DILAUDID 0.5 MG IV ×3 (13:51→19:59)
[2025-06-13 13:53] LABS: Hematocrit 32.5 % (39.0-52.0); Hemoglobin 11.5 g/dL (13.0-18.0)
[2025-06-13 14:01] LABS: ALT (SGPT) 22 U/L (0-50); AST (SGOT) 29 U/L (17-59); Albumin 3.9 g/dl (3.5-5.0); Alkaline Phosphatase 37 U/L (38-126); Blood Urea Nitrogen 20 mg/dl (9-20); Calcium 8.7 mg/dl (8.4-10.2); Carbon Dioxide 23 mmol/L (22-30); Chloride 100 mmol/L (98-107); Estimated Creatinine Clearance 72 ml/min; Glucose 144 mg/dl (70-99); Potassium 4.4 mmol/L (3.5-5.1); Sodium 130 mmol/L (135-145); Total Protein 6.2 g/dl (6.3-8.2); eGFR > 60.00
--- NOTE | 2025-06-13 15:32 | CON.INTV ---
Consultation
Consultation Request
Date/Time Consultation Requested: 06/13/2025
Date/Time Consultation Performed: 06/13/2025
Requesting Provider: Dr. Barba
Performing Provider: Dr. Crispin Calzada
Reason for Consultation: Status post robotic cystectomy with ileal conduit formation
Medical History
-
History of Present Illness:
75-year-old man with history of bladder cancer status post chemotherapy x 4 with [facility]. Status post robotic cystectomy/prostatectomy, ileal conduit creation, left sided TONI drain and ureteral catheter placement.
Patient being transferred to the critical care unit postoperatively for close monitoring.
Patient was found to have subcutaneous crepitus bilaterally on the chest.
He denies chest pain, shortness of breath or cough.
Currently on room air.
His pain is controlled.
Denies nausea or vomiting
-
Past Medical History
Past Medical History: Other (See assessment and plan)
Social History
Tobacco: Former Smoker (Quit in 1999-1 pack/day.)
Alcohol: Former (Quit in 1991)
Drug: None
Personal: Single
Living: Alone
Employment: Retired
Family History
Family History: Reviewed & Not Pertinent
Allergies / Home Medications
Allergies
Allergy/AdvReac Type Severity Reaction Status Date / Time
No Known Drug Allergies Allergy NA Verified 06/13/25 06:35
pollen extracts Allergy congestion Verified 06/13/25 06:35
Home Medications
�Medication �Instructions �Recorded �Confirmed �Last Taken �Type
albuterol sulfate 90 mcg/actuation 2 puff inhalation PRN PRN 12/18/24 06/13/25 Unknown History
aerosol inhaler SOBWHeezes
amlodipine 10 mg tablet 10 mg PO DAILY 12/18/24 06/13/25 06/13/25 04:00 History
gabapentin 300 mg capsule 300 mg PO HS 12/18/24 06/13/25 06/12/25 21:00 History
meloxicam 15 mg tablet 15 mg PO DAILY 12/18/24 06/13/25 06/12/25 08:00 History
metoprolol succinate 100 mg 100 mg PO DAILY 12/18/24 06/13/25 06/13/25 04:00 History
tablet,extended release 24 hr
sodium chloride 1,000 mg soluble 1,000 mg PO 7XD Dizziness 12/18/24 06/13/25 06/13/25 04:00 History
tablet
atorvastatin 10 mg tablet 10 mg PO QPM 06/06/25 06/13/25 06/12/25 21:00 History
docusate sodium 100 mg capsule 100 - 200 mg PO DAILY 06/06/25 06/13/25 06/12/25 08:00 History
(Colace)
lorazepam 0.5 mg tablet 0.5 mg PO PRN PRN anxiety 06/06/25 06/13/25 06/12/25 21:00 History
sertraline 25 mg tablet 75 mg PO DAILY 06/06/25 06/13/25 06/12/25 08:00 History
gabapentin 100 mg tablet 100 mg PO PRN PRN pain 06/13/25 06/13/25 06/12/25 14:00 History
lisinopril 10 mg tablet 10 mg PO DAILY 06/13/25 06/13/25 06/12/25 08:00 History
tamsulosin 0.4 mg capsule 0.4 mg PO DAILY 06/13/25 06/13/25 06/12/25 19:00 History
Review of Systems
-
History Source: Patient
All other systems: Negative unless noted
Vitals / Labs / Diagnostic Testing
Vital Signs
Temp Pulse Resp BP Pulse Ox
97.9 F 72 20 124/58 100
06/13/25 14:00 06/13/25 14:15 06/13/25 14:15 06/13/25 14:15 06/13/25 14:15
Lab Data
06/13/25 13:40
06/13/25 13:40
Diagnostic Testing:
Physical Exam
-
HEENT: Normocephalic
Cardiovascular: S1/S2
Respiratory: Non-Labored Respirations
GI: Soft, Non Distended, Other (Ileal conduit with colostomy bag-) and Other (TONI drain with bloody drainage.)
Neurology: Awake and Alert
Skin: Warm
General: Comfortable
Assessment
-
Bladder cancer status post robotic radical cystectomy/prostatectomy and ilial conduit formation.
Postoperative anemia-blood loss
Bilateral subcutaneous emphysema on x-ray-no pneumothorax
Condition present prior admission:
History of bladder cancer status post chemotherapy X4 sessions with [facility]
Former smoker quit 1999
Hypertension
Hyperlipidemia
Anxiety
Mild to moderate MR/TR
Abdominal aortic atherosclerosis
History of previous pericardial effusion
2D echo 05/03/2025: EF 65 to 70%, normal RVS RV SF, no AR, mild to moderate MR/TR PASP 54 mmHg
Chronic back pain/sciatica/spinal stenosis
BPH
Assessment and plan:
Hemodynamic ICU monitoring
Postoperative care
Analgesia with narcotics and as needed Ketorolac-watch respiratory status closely
Follow daily H&H
Follow renal function
Follow TONI/ileal conduit output
Urology to follow the patient
-
NPO
Head of the bed elevation
-
Bilateral subcutaneous emphysema on x-ray. No pneumothorax.
Asymptomatic
On room air
Clear lungs
Perhaps from positive airway pressure during surgery.
Daily chest x-ray
Monitor pulse ox and provide oxygen to maintain pulse ox above 90%
-
Holding antihypertensive and outpatient medications for now
-
DVT prophylaxis with SCD- Lovenox subcu
-
Will follow
[2025-06-13] MEDS: FLUSH (NSS) 1 FLUSH IV (15:41)
[2025-06-13] MEDS: COLACE 100 MG PO ×2 (15:45→20:53)
--- NOTE | 2025-06-13 16:10 | PTCARENOTE ---
Rec'd pt from PACU at 1500 via bed. Rec'd pt awake alert and oriented. Speech is sl slow but clear. PEDROZA. Denies headache or dizziness. Skin is pink wm and dry. Pt with Midline abd incision and 2 stab wound incisions R and L abd with dressings that
are intact- scant amt of drainage. Respirs are shallow but non-labored on 2L with sats of 99%. Pt with crepitus as documented on the R from the upper chest toward his hip and L upper chest down to upper thigh. BS are decreased with crackle sounding
breath sounds. Monitor SR. + pulses. No edema. VS as documented. TH SCD and TONG Stockings in place. Abd is soft but tender with few hypoactive BS. Denies nausea. R abd ileal conduit - stoma is red with 2 stents and red rubber catheter in place in
stoma. Draining bloody tinged tea colored urine. L abd TONI with Sang drainage. Dsg D+I. Watkins cath in place for bloody urine. IV Normosol hung via L AC IV Site at `120 ml/hr. Capped int intact R hand. CHG bath given. Turned and repositioned. Pt
admitted to 7/10 abd discomfort along with some R neck and shoulder discomfort when trying to lift his R arm. Medicated with Dilaudid 0.5 mg IV at 1540. Call valiente in reach. Plan of care reviewed with pt.
--- NOTE | 2025-06-13 16:25 | PTCARENOTE ---
Dozing post Dilaudid. No changes in assessment
--- NOTE | 2025-06-13 18:30 | PTCARENOTE ---
Remains awake resting in bed. Eating and tolerating clear liquid diet. No c/o nausea. Does admit to some abd pain. Scheduled Toradol given. Watkins remains with bloody urine. Ileal conduit with tea colored urine. Family in to see pt. Repositioned. VS
as documented. Call valiente within reach.
[2025-06-13] MEDS: LIPITOR 10 MG PO (18:33)
[2025-06-13] MEDS: TORADOL 15 MG IV ×2 (18:33→23:51)
[2025-06-13] MEDS: LOVENOX 40 MG SC (18:34)
--- NOTE | 2025-06-13 20:30 | PTCARENOTE ---
Pt received at 19:00. Pt Ox3, slight slow/garbled speech--per pt this is baseline. RA, breath sounds diminished. Crepitus noted B/L upper chest to B/L hips. Abdomen tender to palpation. Hypoactive bowel sounds. Ileal conduit stoma pink, tea colored
output. Watkins in place with bloody output. Midline, and small b/l abdominal dressings CDI. L abdomen TONI drain with sanguineous output.
C/O 7/10 generalized pain to abdomen-PRN dilaudid given as ordered.
[2025-06-13] MEDS: MELATONIN 3 MG PO (20:50)
[2025-06-13] MEDS: NEURONTIN 300 MG PO (20:53)
[2025-06-14] VITALS (24 sets, daily range): BP systolic 105–157; BP diastolic 50–92; BMI 26.9
[2025-06-14] MEDS: NORMOSOL-R/PLASMALYTE-A IV
--- NOTE | 2025-06-14 01:08 | PTCARENOTE ---
Assessment unchanged. Safe environment maintained and call valiente within reach.
[2025-06-14] MEDS: DILAUDID 0.5 MG IV ×3 (02:31→08:56)
[2025-06-14 03:59] LABS: Hematocrit 28.0 % (39.0-52.0); Hemoglobin 9.6 g/dL (13.0-18.0); Mean Corp Hgb Conc. 34.3 g/dL (33.0-37.0); Mean Corpuscular Volume 98.9 fL (80.0-94.0); Nucleated Red Blood Cells % 0 % (-); Platelet Count 148 10^3/uL (130-400); Red Cell Dist. Width 12.0 % (11.5-14.5)
[2025-06-14 04:10] LABS: INR 1.20; PT 15.7 Sec (11.4-14.6)
[2025-06-14 04:11] LABS: APTT 36.4 Sec (23.4-35.0)
[2025-06-14 04:26] LABS: Blood Urea Nitrogen 19 mg/dl (9-20); Calcium 8.2 mg/dl (8.4-10.2); Carbon Dioxide 28 mmol/L (22-30); Chloride 98 mmol/L (98-107); Estimated Creatinine Clearance 93 ml/min; Glucose 112 mg/dl (70-99); Magnesium 1.8 mg/dl (1.6-2.3); Potassium 3.9 mmol/L (3.5-5.1); Sodium 126 mmol/L (135-145); eGFR > 60.00
--- NOTE | 2025-06-14 04:41 | PTCARENOTE ---
Pt assessment unchanged. AM labs pending.
[2025-06-14] MEDS: TORADOL 15 MG IV ×3 (06:28→18:45)
--- NOTE | 2025-06-14 07:59 | WOUNDNOTE ---
[facility] RN note: Patient s/p ileal conduit yesterday. Stoma pink and budded with stents intact. Ostomy appliance intact. Urine blood tinged. Connected urostomy pouch to bedside drainage. Ostomy supplies (Stanley wafer # [id number], Tanya fitzpatrick, Stanley
pouch # [id number]) and urostomy teaching folder left in room. Patient sleepy. He said he didn't sleep well last night. Heels off bed with pillow. Call valiente within reach. Will follow during hospital stay.
[2025-06-14] MEDS: COLACE 100 MG PO ×3 (08:04→21:28)
[2025-06-14] MEDS: TOPROL XL 100 MG PO (08:04)
[2025-06-14] MEDS: PROTONIX IV 40 MG IV (08:05)
[2025-06-14] MEDS: ZESTRIL 10 MG PO (08:05)
[2025-06-14] MEDS: NORVASC 10 MG PO (08:05)
[2025-06-14] MEDS: ZOLOFT 75 MG PO (08:06)
--- NOTE | 2025-06-14 08:29 | W.PN.URO.CBU ---
Today's Communication / Plan
-
advance to [place] diet
encourage ambulation
Assessment / Plan
-
bladder cancer
stable post-op
Diagnosis
-
Date of Service: June 14, 2025
-
Patient Diagnosis: Bladder Cancer s/p Robotic Radical Cystoprostatectomy and Ileal Conduit Urinary Diversion 06/13/2025
Post Op Day:
1
Subjective
-
expected degree of abdominal pain
+ appetite
Objective
-
Vital Signs
Temp Pulse Resp BP Pulse Ox
98.1 F 76 13 132/57 93
06/14/25 04:56 06/14/25 08:05 06/14/25 08:00 06/14/25 08:05 06/14/25 08:00
Intake and Output
06/13/25 06/14/25 06/15/25
06:59 06:59 06:59
Intake Total 2050 / 2250 280 / 280
Output Total 1830 / 1830 75 / 75
Balance 220 / 420 205 / 205
Intake:
Oral fluids 530 / 650 120 / 120
IV fluids (Total) 1520 / 1600 160 / 160
Normosol-R/Plasmalyte-A 1,000 960 / 960
ml @ 120 mls/hr IV .Q8H20M JANEY
Rx#:[id number]
Nss 1,000 ml @ 80 mls/hr IV . 560 / 640 160 / 160
[id number] JANEY Rx#:[id number]
Output:
Drain Output (Total) 410 / 410 75 / 75
Left Abdomen 410 / 410 75 / 75
Urine, Watkins /
Urostomy output 1215 / 1215
Laboratory Results
06/14/25 03:45
06/14/25 03:45
Physical Exam
-
General - well developed, well nourished, no acute distress
Abdomen - soft, absent bowel sounds, no distention
RLQ urostomy: ureteral catheters and red rubber -- healthy
Genitalia - Pelvic drain with thinly bloody urine via phallus
Skin - warm & dry with no rash
Neuro - AOx3, no motor deficits
Extremities - no clubbing, no cyanosis, no edema
Dressings - clean, dry, intact
--- NOTE | 2025-06-14 09:10 | PTCARENOTE ---
Rec'd pt at 0800 resting in bed. Initially sleeping- awakens easily to verbal stimuli and is alert and oriented. Speech is sl garbled/thick sounding but very easily understandable. Denies dizziness or headache. PEDROZA. Does admit to 7-04/15 abd
tenderness/discomfort- Medicated at 0900 with Dilaudid 0.5 mg IV. Respirs are shallow but non-labored on RA with sats of 96%. Pt remains with bilateral crepitus from upper chest to hips but overall seems less so than yesterday. BS are decreased
bases to 1/3 up with crackle sounds mostly from the Crepiuts. IS encouraged and getting about 600 mls. Monitor SR. + pulses. No edema. VS as documented. Thigh high SCD's and Teds in place. Abd is soft but tender to palp with hypoactive BS. L abd TONI
drain with sang drainage. R abd ileoconduit with 2 stents and red rubber cath in stoma. Stoma is pink. Draining shannon urine. Watkins cath intact draining bloody urine. IV NS infusing at 80 ml/hr via L wrist IV site. R hand capped int. Sites wnl. Plan
of care reviewed with pt. Repositioned. Did own oral care. Call rocco in reach. Dr. Taveras in to see pt
--- NOTE | 2025-06-14 09:40 | W.PN.HOSP.TC ---
Today's Communication/Plan
-
stable for med surg
Assessment / Plan
Assessment / Plan
HPI: 75-year-old male past medical history of bladder cancer status post chemotherapy, BPH, hypertension, hyperlipidemia, anxiety, former smoker, pericardial effusion, spinal stenosis, gallstones, diastolic murmur, mitral insufficiency, abdominal
aortic atherosclerosis, chronic anemia presenting with scheduled cystectomy, prostatectomy and partial ileum removal with placement of ileal conduit. �He has ileal conduit, Watkins catheter, TONI drain.
Vital signs normal except for hypoxemia 93%.
Patient noted to have crepitus of entire left lung. �Pain in the left upper chest.
Labs show hemoglobin of 11.5 improved from previously. �Chest x-ray shows bilateral subcutaneous emphysema moderate air under the right hemidiaphragm.
Continue to monitor TONI drain, urine output, trend hemoglobin. �Subcutaneous emphysema likely secondary to anesthesia. �Monitor for hypoxemia. �Urology following.
#Bladder cancer status post robotic radical cystectomy/prostatectomy/part of ileum with ileal conduit
#History of chemo x 4 sessions with [place] [facility]
Monitor TONI drain drainage
Continue urethral catheter
Monitor drainage from ileal conduit
Continue plan of care as per urology
Continue pain meds, encourage ambulation
#Left-sided crepitus status post anesthesia
#History former smoker 31 pack a day quit 1999
93% RA slight left-sided pain
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
Transfer to [facility]
#Chronic hyponatremia
Sodium 126 today, he ranges from 125�132
Currently on sertraline, will hold
Check urine osmolality, urine sodium, TSH, cortisol
Trend sodium, consider nephrology consult if sodium continues to trend down
#Anemia�macrocytic likely secondary to recent chemo x 4 sessions
Monitor hemoglobin
#HTN
Continue amlodipine 10 mg daily, metoprolol succinate 100 mg daily lisinopril 10 mg daily with hold parameters
#HLD
Continue atorvastatin 10 mg every afternoon
#Anxiety
Continue lorazepam 0.5 mg as needed anxiety, Zoloft 75 mg daily
#Mild/moderate MR/TR
#Abdominal aortic atherosclerosis
#History of pericardial effusion in past unsure year
Follows with [facility] cardiology
2D echo 05/03/2025: EF 65 to 70%, normal RVS RV SF, no AR, mild to moderate MR/TR PASP 54 mmHg
#Chronic back pain/sciatica/spinal stenosis
Continue gabapentin
#BPH status post TURP 12/19/2024
Status post prostatectomy 06/13/2025
Stopped Flomax
#History former alcoholic quit 1991
DVT prophylaxis- Subcu Lovenox
Total time spent to see the patient on the floor, examine the patient, review data and lab results, discuss treatment plan with patient, nursing staff around 50 minutes.
Physical Exam
General: No acute distress
HEENT: Normocephalic, Atraumatic, EOMI, MMM
Respiratory: Clear to Auscultation bilaterally
Chest wall: Crepitus in left upper chest
Cardiac: Normal S1/S2, Regular Rate and Rhythm
GI: Soft, appropriately tender, incisions dressed, urostomy in place
Extremities: No Clubbing, Cyanosis, or Edema
Neuro: Nonfocal/Grossly Intact
Anticipated Discharge: 24 - 48 hours
Subjective/Interval History
-
Date of Service: June 14, 2025
Patient complains of abdominal pain. He is unsure if it is from the incision versus gas pain. He denies chest pain, denies shortness of breath. No fever, no vomiting.
Objective Data
-
Labs:
Laboratory Results
06/14/25
03:45
WBC 11.4 H
Hgb 9.6 L
Hct 28.0 L
Plt Count 148
PT 15.7 H
INR 1.20
APTT 36.4 H
Sodium 126 L
Potassium 3.9
Chloride 98
Carbon Dioxide 28
BUN 19
Creatinine 0.7
Glucose 112 H
Calcium 8.2 L
Vital Signs:
Vital Signs
Temp Pulse Resp BP Pulse Ox
97.8 F 65 17 141/65 97
06/14/25 08:00 06/14/25 09:00 06/14/25 09:00 06/14/25 09:00 06/14/25 09:00
I&O
06/13/25 06/14/25 06/15/25
06:59 06:59 06:59
Intake Total 2049 400 / 400
Output Total 1829 375 / 375
Balance 220 / 420
--- NOTE | 2025-06-14 10:15 | PTCARENOTE ---
Excellent appetite for breakfast. Denies nausea. States Dilaudid eased the abd pain although he still has soreness. Resting currently with call valiente in reach.
--- NOTE | 2025-06-14 10:29 | W.PN.INTV ---
Today's Communication / Plan
Recommendations
Continue postoperative care
Chest x-ray only on as-needed basis
Increase activity as able
Continue analgesia
Follow H&H
Follow TONI output
Transfer to [facility]
Sign off
Assessment
-
Bladder cancer status post robotic radical cystectomy/prostatectomy and ilial conduit formation.
Postoperative anemia-blood loss
Bilateral subcutaneous emphysema on x-ray-no pneumothorax
Condition present prior admission:
History of bladder cancer status post chemotherapy X4 sessions with [facility]
Former smoker quit 1999
Hypertension
Hyperlipidemia
Anxiety
Mild to moderate MR/TR
Abdominal aortic atherosclerosis
History of previous pericardial effusion
2D echo 05/03/2025: EF 65 to 70%, normal RVS RV SF, no AR, mild to moderate MR/TR PASP 54 mmHg
Chronic back pain/sciatica/spinal stenosis
BPH
Assessment and plan:
Postoperative day 1
Hemodynamically stable overnight
Afebrile
Continue analgesia-monitor respiratory status closely.
Currently on room air
Clear lung exam
Encouraged incentive spirometry
Increase activity as able
-
Follow daily H&H
Follow renal function-currently normal
-
Urology continues to follow
Follow TONI/ileal conduit output
-
Advance diet per urology
Head of the bed elevation
-
Bilateral subcutaneous emphysema on x-ray. No pneumothorax.
Chest x-ray 06/14/2025: Subcutaneous air improved. No pneumothorax. Clear lungs
Asymptomatic
On room air
Clear lungs on exam.
Perhaps from positive airway pressure during surgery.
No need to repeat chest x-ray unless there is respiratory decompensation. Subcutaneous air likely to get reabsorbed
Monitor pulse ox and provide oxygen to maintain pulse ox above 90%
-
Restart outpatient medications once able to tolerate p.o. intake.
-
DVT prophylaxis with SCD- Lovenox subcu
-
Transfer to [facility].
Critical care team will sign off
Please call with questions
Subjective Dataa
Subjective Data
Date of Service:
Date of Service: June 14, 2025
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
Subjective:
Patient reports postoperative pain.
Denies nausea or vomiting per
Denies shortness of breath.
No overnight event
Review of Systems
Cardiopulmonary: Dyspnea (None), Cough (None) and Sputum Production (n)
GI: Abdominal Pain (Postoperative)
Objective Data
Data Reviewed
Vital Signs / I&O / Oxygen:
Vital Signs
Temp Pulse Resp BP Pulse Ox
97.8 F 65 17 141/65 97
06/14/25 08:00 06/14/25 09:00 06/14/25 09:00 06/14/25 09:00 06/14/25 09:00
Intake and Output
06/13/25 06/14/25 06/15/25
06:59 06:59 06:59
Intake Total 2049 / 0 400 / 400
Output Total 1830 / 1830 375 / 375
Balance 220 / 420
SaO2 97
Nasal Cannula flow liters per 2
minute
Physical Exam
General: Comfortable
HEENT: Normocephalic
Cardiovascular: S1-S2
Respiratory: Non-Labored Respirations
GI: Soft, Non Distended, Other (TONI drain with bloody drain) and Other (Ileostomy bag with bloody drainage)
Neurology: Awake, Alert and Oriented
Labs/Micro/Reports
Lab Data
06/14/25 03:45
06/14/25 03:45
Laboratory Results
06/14/25
03:45
PT 15.7 H
INR 1.20
APTT 36.4 H
--- NOTE | 2025-06-14 11:00 | PTCARENOTE ---
Complete CHG bath and fung care given. Pt then assisted with assist of 1 oob to the chair. Gait is sl weak but steady. Outputs as documented. Call valiente in reach. No other changes.
[2025-06-14 11:12] LABS: Cortisol, Random 6.1 ug/dl
[2025-06-14] MEDS: OCEAN, SALINE MIST 1 SPRAYS NASAL (12:13)
[2025-06-14] MEDS: DILAUDID 1 MG IV ×3 (12:14→20:31)
[2025-06-14] MEDS: MYLICON 80 MG PO (12:39)
[2025-06-14] MEDS: NSS 1000 IV ×2 (12:39)
--- NOTE | 2025-06-14 12:40 | PTCARENOTE ---
Remains sitting oob in the chair. Assessment overall is unchanged. C/O 7-810 abd pain. Medicated with Scheduled Toradol and 1 mg IV Dilaudid for the abd pain at 1215. Dr. Stuart in and pt admitted to having some ''gas pains' and Mylicon 80 mg po given
as ordered. IV NSS continues to infuse at 80 ml/hr. Ileoconduit draining sl bloody tinged shannon /tea colored urine. Watkins with bloody drainage. TONI with bloody drainage. Call valiente in reach. Pt for transfer to Med/Surg when bed available.
--- NOTE | 2025-06-14 14:07 | CM ---
Initial assessment completed with patient who lives alone in a 2 story home plus basement with B/B on 2nd and 1/2 bath on 1st, 3 steps to enter. [employer] OPER[employer] patient was independent in ADL's and ambulation, drives. DME: crutches and standard walker..does
not use. No in-home services. Does have HC-POA. No VA benefits. No psychiatric hospitalizations. PCP is Dr. Marina Lizarraga. Pharmacy is [facility] [phone] in [place]. Discharge POC: Home with RN for urostomy care. Preference is HH.
--- NOTE | 2025-06-14 14:16 | PTCARENOTE ---
Assisted back to bed with assist of 1-2 mostly for tube management. Gait is weak but steady. States Mylicon helped the 'gas discomfort'. Admits to abd pain but eased since Toradol and Dilaudid. States the pain meds take this discomfort to about a 5.
Denies nausea. Pt is using his IS getting about 500-700. Crepitus while still present seems less pronounced than this am. Does admit to soreness with taking a deep breath. RA sats are 95%. Call valiente in reach. Lunch ordered (pt wanted to wait until
now)
--- NOTE | 2025-06-14 16:20 | PTCARENOTE ---
Assessment unchanged. Remedicated with Dilaudid 1 mg IV for 810 abd pain. States the pain eases after the Dilaudid for a while then it starts to come back. No other changes.
--- NOTE | 2025-06-14 18:30 | PTCARENOTE ---
States earlier Dilaudid helped the abd pain. Good appetite for dinner. Watching the [employer]. Urostomy/Ileoconduit putting out good amts of urine shannon bloody tinged.
[2025-06-14] MEDS: LOVENOX 40 MG SC (18:45)
[2025-06-14] MEDS: LIPITOR 10 MG PO (18:46)
[2025-06-14 20:48] LABS: Blood Urea Nitrogen 13 mg/dl (9-20); Calcium 8.2 mg/dl (8.4-10.2); Carbon Dioxide 28 mmol/L (22-30); Chloride 97 mmol/L (98-107); Estimated Creatinine Clearance 93 ml/min; Glucose 141 mg/dl (70-99); Potassium 4.2 mmol/L (3.5-5.1); Sodium 124 mmol/L (135-145); eGFR > 60.00
[2025-06-14] MEDS: MELATONIN 3 MG PO (21:28)
[2025-06-14] MEDS: NEURONTIN 300 MG PO (21:28)
[2025-06-15] VITALS (12 sets, daily range): BP systolic 132–166; BP diastolic 60–87; BMI 27.2
[2025-06-15] MEDS: NSS 1000 IV (00:44)
[2025-06-15] MEDS: TORADOL 15 MG IV ×4 (01:09→17:30)
[2025-06-15] MEDS: NON-FORMULARY ITEM 1 UNIT BOTH EYES ×2 (01:12)
[2025-06-15] MEDS: DILAUDID 0.5 MG IV ×3 (02:44→15:54)
[2025-06-15 06:08] LABS: Blood Urea Nitrogen 9 mg/dl (9-20); Calcium 8.3 mg/dl (8.4-10.2); Carbon Dioxide 26 mmol/L (22-30); Chloride 100 mmol/L (98-107); Estimated Creatinine Clearance 108 ml/min; Glucose 110 mg/dl (70-99); Potassium 4.1 mmol/L (3.5-5.1); Sodium 128 mmol/L (135-145); eGFR > 60.00
[2025-06-15] MEDS: NORVASC 10 MG PO (08:03)
[2025-06-15] MEDS: ZESTRIL 10 MG PO (08:03)
[2025-06-15] MEDS: COLACE 100 MG PO ×3 (08:03→21:09)
[2025-06-15] MEDS: TOPROL XL 100 MG PO (08:03)
--- NOTE | 2025-06-15 08:25 | W.PN.HOSP.TC ---
Today's Communication/Plan
-
see bold
Assessment / Plan
Assessment / Plan
HPI: 75-year-old male past medical history of bladder cancer status post chemotherapy, BPH, hypertension, hyperlipidemia, anxiety, former smoker, pericardial effusion, spinal stenosis, gallstones, diastolic murmur, mitral insufficiency, abdominal
aortic atherosclerosis, chronic anemia presenting with scheduled cystectomy, prostatectomy and partial ileum removal with placement of ileal conduit. �He has ileal conduit, Watkins catheter, TONI drain.
Vital signs normal except for hypoxemia 93%.
Patient noted to have crepitus of entire left lung. �Pain in the left upper chest.
Labs show hemoglobin of 11.5 improved from previously. �Chest x-ray shows bilateral subcutaneous emphysema moderate air under the right hemidiaphragm.
Continue to monitor TONI drain, urine output, trend hemoglobin. �Subcutaneous emphysema likely secondary to anesthesia. �Monitor for hypoxemia. �Urology following.
#Bladder cancer status post robotic radical cystectomy/prostatectomy/part of ileum with ileal conduit
#History of chemo x 4 sessions with [place] [facility]
Monitor TONI drain drainage
Continue urethral catheter
Monitor drainage from ileal conduit
Continue plan of care as per urology
Continue pain meds, encourage ambulation
#Left-sided crepitus status post anesthesia
#History former smoker 31 pack a day quit 1999
93% RA slight left-sided pain
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
Currently Med surg status
#Chronic hyponatremia exacerbated by prostate surgery
Sodium 128 today, was 126, he ranges from 125�132
Currently on sertraline, will hold
Serum osmolality/urine studies reviewed, suggestive of possible SIADH versus reset osmostat, TSH/cortisol normal
Was previously prescribed sodium chloride 1 g daily for 7 days prior to surgery, consult nephrology, start fluid restriction, trend sodium
#Anemia�macrocytic likely secondary to recent chemo x 4 sessions
Monitor hemoglobin
#HTN
Continue amlodipine 10 mg daily, metoprolol succinate 100 mg daily lisinopril 10 mg daily with hold parameters
#HLD
Continue atorvastatin 10 mg every afternoon
#Anxiety
Continue lorazepam 0.5 mg as needed anxiety, hold Zoloft 75 mg daily due to hypoNa
#Mild/moderate MR/TR
#Abdominal aortic atherosclerosis
#History of pericardial effusion in past unsure year
Follows with [facility] cardiology
2D echo 05/03/2025: EF 65 to 70%, normal RVS RV SF, no AR, mild to moderate MR/TR PASP 54 mmHg
#Chronic back pain/sciatica/spinal stenosis
Continue gabapentin
#BPH status post TURP 12/19/2024
Status post prostatectomy 06/13/2025
Stopped Flomax
#History former alcoholic quit 1991
DVT prophylaxis- Subcu Lovenox
Total time spent to see the patient on the floor, examine the patient, review data and lab results, discuss treatment plan with patient, nursing staff around 51 minutes.
Physical Exam
General: No acute distress
HEENT: Normocephalic, Atraumatic, EOMI, MMM
Respiratory: Clear to Auscultation bilaterally
Chest wall: Crepitus in left upper chest
Cardiac: Normal S1/S2, Regular Rate and Rhythm
GI: Soft, appropriately tender, incisions dressed, urostomy in place
Extremities: No Clubbing, Cyanosis, or Edema
Neuro: Nonfocal/Grossly Intact
Anticipated Discharge: 24 - 48 hours
Subjective/Interval History
-
Date of Service: June 15, 2025
Patient reports improvement in his abdominal pain. He states he did not sleep well. Denies chest pain, denies shortness of breath. No fever, no vomiting.
Objective Data
-
Labs:
Laboratory Results
06/14/25 06/15/25
20:24 05:30
Sodium 124 L 128 L
Potassium 4.2 4.1
Chloride 97 L 100
Carbon Dioxide 28 26
BUN 13 9
Creatinine 0.7 0.6 L
Glucose 141 H 110 H
Calcium 8.2 L 8.3 L
Vital Signs:
Vital Signs
Temp Pulse Resp BP Pulse Ox
98.2 F 69 21 140/60 94
06/15/25 02:52 06/15/25 04:00 06/15/25 04:00 06/15/25 04:00 06/15/25 02:00
I&O
06/14/25 06/15/25 06/16/25
06:59 06:59 06:59
Intake Total 2049 3530 / 3529
Output Total 1829 7170 / 7170
Balance 220 / 420 -3640 / -3640
--- NOTE | 2025-06-15 09:36 | W.PN.URO.CBU ---
Today's Communication / Plan
-
out of ICU
regular diet
Assessment / Plan
-
bladder cancer
stable post-op
Diagnosis
-
Date of Service: June 15, 2025
-
Patient Diagnosis: Bladder Cancer s/p Robotic Radical Cystoprostatectomy and Ileal Conduit Urinary Diversion 06/13/2025
Post Op Day:
2
Subjective
-
less pain
'can I have regular food?'
has been OOB
Objective
-
Vital Signs
Temp Pulse Resp BP Pulse Ox
98.8 F 76 16 154/69 94
06/15/25 08:00 06/15/25 08:00 06/15/25 08:00 06/15/25 08:00 06/15/25 02:00
Intake and Output
06/14/25 06/15/25 06/16/25
06:59 06:59 06:59
Intake Total 205 / 0 3530 / 3530 320 / 320
Output Total 1830 / 1830 7170 / 7170
Balance 220 / 420 -3640 / -3640 320 / 320
Intake:
Oral fluids 530 / 650 1770 / 1770
IV fluids (Total) 1520 / 1600 1760 / 1760 320 / 320
Normosol-R/Plasmalyte-A 1,000 960 / 960
ml @ 120 mls/hr IV .Q8H20M JANEY
Rx#:[id number]
Nss 1,000 ml @ 80 mls/hr IV . 560 / 640 1760 / 1760 320 / 320
[id number] AJNEY Rx#:[id number]
Output:
Drain Output (Total) 410 / 410 125 / 125
Left Abdomen 410 / 410 125 / 125
Urine, Watkins 205 / 205 1330 / 1330
Urostomy output 1215 / 1215 5715 / 5715
Laboratory Results
06/14/25 03:45
06/15/25 05:30
Physical Exam
-
General - well developed, well nourished, no acute distress
Abdomen - soft, positive bowel sounds, no distention
Urostomy with ureteral stents and red rubber -- healthy
Genitalia - Watkins: pelvic drain with thinly blood output
LQ Rufino: thinly bloody utput
Skin - warm & dry with no rash
Neuro - AOx3, no motor deficits
Extremities - no clubbing, no cyanosis, no edema
Incisions - clean, dry
Dressing - removed
--- NOTE | 2025-06-15 10:25 | WOUNDNOTE ---
[facility] RN note: Reviewed how to empty, connect to overnight drainage, care of overnight urinary drainage bad, how to cut and snap pouch onto wafer with patient. Patient gave permission to order him a GuidePal ostomy secure starter kit. Skin on heels
and sacrum intact. Patterson texted Dr. Taveras asking if he prefers ostomy nurse change his appliance for teaching today vs Wednesday. Await response.
--- NOTE | 2025-06-15 12:29 | WOUNDNOTE ---
[facility] RN note: Patient instructed how to empty and change urostomy appliance using Stanley wafer # [id number], Tanya seal and Stanley pouch # [id number]. Skin slightly blistered just outside paper tape border of wafer suspect from post op edema. Stoma about
1 3/8inches and budded. Stents intact. Urine dark yellow/shannon. Instructed patient hand hygiene with ostomy care. Ostomy supplies and urostomy teaching folder with patient. VN planned when discharged.
--- NOTE | 2025-06-15 13:04 | WOUNDNOTE ---
W[facility] RN note: Ordered a Stanley ostomy secure starter kit.
--- NOTE | 2025-06-15 15:08 | W.CON.NEPH ---
Consultation
-
Date/Time Consultation Requested: 06/15/25 1400
Date/Time Consultation Performed: 06/15/25 1400
Requesting Provider: Dr. Stuart
Performing Provider: Dr. Chang
Reason for Consultation: hyponatremia
Medical History
-
Chief Complaint: hyponatremia
History of Present Illness:
75-year-old male with bladder cancer status post chemotherapy. Admitted after robotic radical cystectomy and ileal conduit creation. He has chronic hyponatremia treated as an outpatient with 7000mg NaCl daily, but drinks 1 gallon of fluid daily. He
says he was told to drink more because of 'dehydration syndrome'. He has long standing HTN controlled modestly on a multidrug regimen. He is also on SSRI for anxiety with is controlled. We are asked to see patient for hyponatremia.
Past Medical History
bladder cancer
BPH
HTN
HLD
anxiety
pericardial effusion unknown year
Chronic back pain with sciatica
spinal stenosis
gallstones
diastolic murmur
mitral insufficiency
abdominal aortic atherosclerosis
BPH status post TURP 12/19/2024
Left great toe hallux repair
Spinal foraminotomy
Tonsillectomy
Nasal surgery
Social History
Tobacco: Former Smoker
Alcohol: Former
Family History
Family History: Not Pertinent
Allergies / Home Medications
Allergy/AdvReac Type Severity Reaction Status Date / Time
No Known Drug Allergies Allergy NA Verified 06/13/25 06:35
pollen extracts Allergy congestion Verified 06/13/25 06:35
�Medication �Instructions �Recorded �Confirmed �Type
albuterol sulfate 90 mcg/actuation 2 puff inhalation PRN PRN 12/18/24 06/13/25 History
aerosol inhaler SOBWHeezes
amlodipine 10 mg tablet 10 mg PO DAILY Blood Pressure 12/18/24 06/13/25 History
gabapentin 300 mg capsule 300 mg PO HS Pain 12/18/24 06/13/25 History
meloxicam 15 mg tablet 15 mg PO DAILY Pain 12/18/24 06/13/25 History
metoprolol succinate 100 mg 100 mg PO DAILY Blood Pressure 12/18/24 06/13/25 History
tablet,extended release 24 hr
sodium chloride 1,000 mg soluble 1,000 mg PO 7XD Dizziness 12/18/24 06/13/25 History
tablet
atorvastatin 10 mg tablet 10 mg PO QPM High Cholesterol 06/06/25 06/13/25 History
docusate sodium 100 mg capsule 100 - 200 mg PO DAILY Constipation 06/06/25 06/13/25 History
(Colace)
lorazepam 0.5 mg tablet 0.5 mg PO PRN PRN anxiety 06/06/25 06/13/25 History
sertraline 25 mg tablet 75 mg PO DAILY Mental 06/06/25 06/13/25 History
Health/Anxiety
gabapentin 100 mg tablet 100 mg PO PRN PRN pain 06/13/25 06/13/25 History
lisinopril 10 mg tablet 10 mg PO DAILY Blood Pressure 06/13/25 06/13/25 History
tamsulosin 0.4 mg capsule 0.4 mg PO DAILY Urinary Issue 06/13/25 06/13/25 History
naphazoline 0.55207 %-pheniramine 2 drp ophthalmic (eye) QID PRN 06/14/25 06/14/25 History
0.315 % eye drops (Opcon-A) ITCHING
peg 400-propylene glycol 0.4 %-0.3 1 drp ophthalmic (eye) TID PRN DRY 06/14/25 06/14/25 History
% eye drops (Systane (propylene EYE
glycol))
Review of Systems
-
no CP/SOB
All other systems: Negative unless noted
Physical Exam
Vital Signs
Vital Signs
Temp Pulse Resp BP Pulse Ox
97.5 F 66 21 165/68 94
06/15/25 11:55 06/15/25 12:00 06/15/25 12:00 06/15/25 12:00 06/15/25 02:00
Lab Results
WBC 11.4 10^3/uL (4.8-10.8) H 06/14/25 03:45
RBC 2.83 10^6/uL (4.70-6.10) L 06/14/25 03:45
Hgb 9.6 g/dL (13.0-18.0) L 06/14/25 03:45
Hct 28.0 % (39.0-52.0) L 06/14/25 03:45
Plt Count 148 10^3/uL (130-400) 06/14/25 03:45
Sodium 128 mmol/L (135-145) L 06/15/25 05:30
Potassium 4.1 mmol/L (3.5-5.1) 06/15/25 05:30
Chloride 100 mmol/L (98-107) 06/15/25 05:30
Carbon Dioxide 26 mmol/L (22-30) 06/15/25 05:30
BUN 9 mg/dl (9-20) 06/15/25 05:30
Creatinine 0.6 mg/dL (0.7-1.3) L 06/15/25 05:30
eGFR > 60.00 06/15/25 05:30
Glucose 110 mg/dl (70-99) H 06/15/25 05:30
Calcium 8.3 mg/dl (8.4-10.2) L 06/15/25 05:30
Phosphorus 4.0 mg/dl (2.5-4.5) 06/14/25 03:45
Albumin 3.9 g/dl (3.5-5.0) 06/13/25 13:40
Laboratory Tests
12/21/24 05/21/25 06/13/25
07:25 11:10 13:40
Sodium 125 L 131 L 130 L
Serum Osmolality
TSH (Reflex)
Random Cortisol
Urine Osmolality
Urine Sodium
06/14/25 06/14/25
03:45 12:22
Sodium
Serum Osmolality 269 L
TSH (Reflex) 1.19
Random Cortisol 6.1
Urine Osmolality 510
Urine Sodium 48
Physical Exam
Patient is awake alert oriented and in no distress. Mood and affect were pleasant, insight and judgment were good. Pupils are equal round and reactive to light, extraocular movements are intact, sclera were anicteric. Hearing was normal, ears and
nose are intact. Oropharynx was clear. Neck was supple with trachea midline and no thyromegaly. Heart was regular rate and rhythm without rubs. Lower extremities without edema. Lungs were clear to auscultation bilaterally and with normal
excursion. Abdomen was soft, nontender, with normal active bowel sounds, and no hepatosplenomegaly. Skin was without rash and with normal turgor.
Data Reviewed
-
Radiology: Image Personally Visualized and interpreted (X-ray 06/14/2025 by my reading bibasilar atelectasis, pneumoperitoneum)
Medical Tests (Nuc Med, Echo etc): Image Personally Visualized and interpreted (EKG 03/07/2025 artery normal sinus rhythm) and Report Reviewed by me (Echocardiogram 05/03/2025 ejection fraction 65% moderate MR moderate TR)
Labs: Labs Reviewed by me
Old Records: Reviewed
Assessment/Plan
-
Assessment
hyponatremia
Bladder CA s/p cystectomy and ileal conduit
HTN
anxiety
proteinuria
Plan
check Urine pro/creat ratio
will restart hyponatremia treatment.
no salt tabs
FR 1200ml
samsca today
follow BMP
may continue SSRI for now
--- NOTE | 2025-06-15 15:22 | WOUNDNOTE ---
WOC RN note: Patient given soft convex samples to try if needed (Belsano wafer # [id number] with Belsano pouch # [id number] and 1 piece soft convex cut to fit 1 piece urostomy samples #[id number] and Belsano ostomy belt #[id number].
--- NOTE | 2025-06-15 15:28 | CM ---
Following up on Patient. RN stated that patient is being downgraded today and has new urostomy. SHANNAN Rayo met with patient, he is fine with Home RN, lives in the area, so asked who he wanted with Home RN, fine with [facility], and referral was made.
Patient will get 2 weeks supply of urostomy supplies then [facility] will take over ordering them. IMM Completed, patient discharging on Wednesday according to Hospitalist.
PLAN: Home with [facility]
--- NOTE | 2025-06-15 15:39 | VNURNOTE ---
Home Health Liaison met with patient at bedside to discuss [facility] nurse/therapy, visits, schedule and homebound status. Patient is agreeable and understands that visits at home will be 2-3 x per week to assess and teach medical management. He has
extra urostomy supplies packed. He will also receive a starter pack delivered to home. He is aware that [facility] will contact them for start of care in 1-2 days after discharge from . Provided contact number for [facility].
[facility] referral accepted in [facility].
--- NOTE | 2025-06-15 16:20 | PTCARENOTE ---
Pt received from the ICU via wheelchair. Transport was w/o incident. Pt is AAOx3, Pt's ileoconduit intact hooked to drainage bag. Watkins through meatus w/ blood tinged drainage. Vasquez drain to left abd intact/ serosanquinous drainage noted. Pt's abd
with vertical incision well approximated w/ marck and port sites w/ marck intact. VS: 97.8-74-16-166/74. Pt instructed on plan of care. Pt verbalized understanding of instructions. Call valiente is within reach.
[2025-06-15] MEDS: SAMSCA 15 MG PO (17:30)
[2025-06-15] MEDS: LOVENOX 40 MG SC (17:30)
[2025-06-15] MEDS: LIPITOR 10 MG PO (17:30)
--- NOTE | 2025-06-15 17:36 | PTCARENOTE ---
Pt OOB in chair for over 6hrs. Ambulated in hallway with RN. Steady with rolling walker.
[2025-06-15] MEDS: NEURONTIN 300 MG PO (21:09)
[2025-06-15] MEDS: BENADRYL 25 MG PO (21:09)
[2025-06-15] MEDS: MELATONIN 5 MG PO (21:09)
[2025-06-15] MEDS: MYLICON 80 MG PO (21:18)
[2025-06-16 03:04] VITALS: BP 130/66
[2025-06-16] MEDS: TORADOL 15 MG IV ×5 (05:49→23:11)
[2025-06-16 06:48] LABS: Hematocrit 30.9 % (39.0-52.0); Hemoglobin 10.7 g/dL (13.0-18.0); Mean Corp Hgb Conc. 34.6 g/dL (33.0-37.0); Mean Corpuscular Volume 97.8 fL (80.0-94.0); Platelet Count 179 10^3/uL (130-400); Red Cell Dist. Width 11.8 % (11.5-14.5)
[2025-06-16 07:15] LABS: Blood Urea Nitrogen 15 mg/dl (9-20); Calcium 8.9 mg/dl (8.4-10.2); Carbon Dioxide 27 mmol/L (22-30); Chloride 102 mmol/L (98-107); Estimated Creatinine Clearance 93 ml/min; Glucose 111 mg/dl (70-99); Potassium 4.0 mmol/L (3.5-5.1); Sodium 131 mmol/L (135-145); eGFR > 60.00
[2025-06-16 07:40] VITALS: BP 154/72
[2025-06-16] MEDS: COLACE 100 MG PO ×3 (08:43→20:32)
[2025-06-16] MEDS: TOPROL XL 100 MG PO (08:43)
[2025-06-16] MEDS: ZESTRIL 10 MG PO (08:44)
[2025-06-16] MEDS: NORVASC 10 MG PO (08:44)
--- NOTE | 2025-06-16 08:58 | W.PN.HOSP.TC ---
Today's Communication/Plan
-
see bold
Assessment / Plan
Assessment / Plan
HPI: 75-year-old male past medical history of bladder cancer status post chemotherapy, BPH, hypertension, hyperlipidemia, anxiety, former smoker, pericardial effusion, spinal stenosis, gallstones, diastolic murmur, mitral insufficiency, abdominal
aortic atherosclerosis, chronic anemia presenting with scheduled cystectomy, prostatectomy and partial ileum removal with placement of ileal conduit. �He has ileal conduit, Watkins catheter, TONI drain.
Vital signs normal except for hypoxemia 93%.
Patient noted to have crepitus of entire left lung. �Pain in the left upper chest.
Labs show hemoglobin of 11.5 improved from previously. �Chest x-ray shows bilateral subcutaneous emphysema moderate air under the right hemidiaphragm.
Continue to monitor TONI drain, urine output, trend hemoglobin. �Subcutaneous emphysema likely secondary to anesthesia. �Monitor for hypoxemia. �Urology following.
#Bladder cancer status post robotic radical cystectomy/prostatectomy/part of ileum with ileal conduit
#History of chemo x 4 sessions with [facility]
Continue urethral catheter. Monitor drainage from ileal conduit
Continue plan of care as per urology, TONI drain removed 06/16
Continue pain meds, encourage ambulation, add MiraLAX
#Left-sided crepitus status post anesthesia
#History former smoker 31 pack a day quit 1999
93% RA slight left-sided pain
Appreciate wreath machine tender input, patient's respiratory status is stable
#Chronic hyponatremia exacerbated by prostate surgery
#SIADH
Sodium 131 today, was 128, was 126, he ranges from 125�132
Serum osmolality/urine studies reviewed, suggestive of possible SIADH, TSH/cortisol normal
Appreciate nephrology input, labs consistent with SIADH, sodium improved [facility]
Continue fluid restriction, trend sodium
#Anemia�macrocytic likely secondary to recent chemo x 4 sessions
Monitor hemoglobin
#HTN
Continue amlodipine 10 mg daily, metoprolol succinate 100 mg daily lisinopril 10 mg daily with hold parameters
#HLD
Continue atorvastatin 10 mg every afternoon
#Anxiety
Continue lorazepam 0.5 mg as needed anxiety, okay to continue Zoloft per nephrology
#Mild/moderate MR/TR
#Abdominal aortic atherosclerosis
#History of pericardial effusion in past unsure year
Follows with [facility]
2D echo 05/03/2025: EF 65 to 70%, normal RVS RV SF, no AR, mild to moderate MR/TR PASP 54 mmHg
#Chronic back pain/sciatica/spinal stenosis
Continue gabapentin
#BPH status post TURP 12/19/2024
Status post prostatectomy 06/13/2025
Stopped Flomax
#History former alcoholic quit 1991
DVT prophylaxis- Subcu Lovenox
Total time spent to see the patient on the floor, examine the patient, review data and lab results, discuss treatment plan with patient, nursing staff around 41 minutes.
Physical Exam
General: No acute distress
HEENT: Normocephalic, Atraumatic, EOMI, MMM
Respiratory: Clear to Auscultation bilaterally
Chest wall: Crepitus in left upper chest
Cardiac: Normal S1/S2, Regular Rate and Rhythm
GI: Soft, appropriately tender, incisions dressed, urostomy in place
Extremities: No Clubbing, Cyanosis, or Edema
Neuro: Nonfocal/Grossly Intact
Anticipated Discharge: 24 - 48 hours
Subjective/Interval History
-
Date of Service: June 16, 2025
Patient reports improvement in his abdominal pain. He is passing gas, no stool. Denies chest pain, denies shortness of breath. No fever, no vomiting.
Objective Data
-
Labs:
Laboratory Results
06/16/25
06:17
WBC 8.5
Hgb 10.7 L
Hct 30.9 L
Plt Count 179 D
Sodium 131 L
Potassium 4.0
Chloride 102
Carbon Dioxide 27
BUN 15
Creatinine 0.7
Glucose 111 H
Calcium 8.9
Vital Signs:
Vital Signs
Temp Pulse Resp BP Pulse Ox
98 F 82 16 154/72 97
06/16/25 07:40 06/16/25 08:44 06/16/25 07:40 06/16/25 08:44 06/16/25 07:40
I&O
06/15/25 06/16/25 06/17/25
06:59 06:59 06:59
Intake Total 3530 / 3530 1120 / 1120
Output Total 7170 / 7170 5470 / 5470
Balance -3640 / -3640 -4350 / -4350
--- NOTE | 2025-06-16 09:59 | W.PN.URO.CBU ---
Today's Communication / Plan
-
encourage anmbulatoion teAch stoma care of urostomy
Assessment / Plan
-
bladder cancer
stable post-op will remove claudia but fung is 2000 prob reabsorption of intra op fluids will try miralax for constipation removed claudia leave pelvic fung x 24 hours
Diagnosis
-
Date of Service: June 16, 2025
-
Patient Diagnosis:
Post Op Day:
Patient Diagnosis: Bladder Cancer s/p Robotic Radical Cystoprostatectomy and Ileal Conduit Urinary Diversion 06/13/2025
Post Op Day:
2
Subjective
-
min pain some constipation
Objective
-
Vital Signs
Temp Pulse Resp BP Pulse Ox
98 F 82 16 154/72 97
06/16/25 07:40 06/16/25 08:44 06/16/25 07:40 06/16/25 08:44 06/16/25 07:40
Intake and Output
06/15/25 06/16/25 06/17/25
06:59 06:59 06:59
Intake Total 3530 / 3530 1120 / 1120
Output Total 7170 / 7170 5470 / 5470
Balance -3640 / -3640 -4350 / -4350
Intake:
Oral fluids 1770 / 1770 800 / 800
IV fluids (Total) 1760 / 1760 320 / 320
Nss 1,000 ml @ 80 mls/hr IV . 1760 / 1760 320 / 320
[id number] [facility] Rx#:[id number]
Output:
Drain Output (Total) 125 / 125 30 / 30
Left Abdomen 125 / 125 30 / 30
Urinary Drain Output (Total) 200 / 200
Right 200 / 200
Urine, Fung 1330 / 1330 5 / 2715
Urostomy output 5715 / 5715 2525 / 2525
Laboratory Results
06/16/25 06:17
06/16/25 06:17
Review of Systems
-
Abdomen/GI: Constipated
Physical Exam
-
General - well developed, well nourished, no acute distress
Chest - clear bilaterally
Abdomen - soft, non-tender, positive bowel sounds, no CVAT, no incisional pain or distention
Genitalia - normal
Rectal - normal
Skin - warm & dry with no rash
Neuro - AOx3, no motor deficits
Extremities - no clubbing, no cyanosis, no edema
Incision - clean, dry
Dressing - clean, dry, intact
Care Review
Data Reviewed
Discussed with: Internal Medicine (nephrology) and Nursing
[2025-06-16] MEDS: MIRALAX 17 GRAMS PO (11:28)
--- NOTE | 2025-06-16 14:59 | W.PN.NEPH.PH ---
Today's Communication / Plan
-
Follow BMP
Assessment/Plan
-
Assessment
hyponatremia
Bladder CA s/p cystectomy and ileal conduit
HTN
anxiety
proteinuria
Plan
check Urine pro/creat ratio
no salt tabs for now
FR 1200ml
No samsca today
follow BMP
may continue SSRI for now
-
-
Date of Service: June 16, 2025
CC / HPI / ROS
-
Chief Complaint:
Hyponatremia
History of Present Illness:
Sodium up to 131 after Samsca
BP stable but high
Gross hematuria from Watkins
No issues with ileal conduit
Review of Systems:
No chest pain or shortness of breath
Labs
-
Labs:
WBC 8.5 10^3/uL (4.8-10.8) 06/16/25 06:17
RBC 3.16 10^6/uL (4.70-6.10) L 06/16/25 06:17
Hgb 10.7 g/dL (13.0-18.0) L 06/16/25 06:17
Hct 30.9 % (39.0-52.0) L 06/16/25 06:17
Plt Count 179 10^3/uL (130-400) D 06/16/25 06:17
Sodium 131 mmol/L (135-145) L 06/16/25 06:17
Potassium 4.0 mmol/L (3.5-5.1) 06/16/25 06:17
Chloride 102 mmol/L (98-107) 06/16/25 06:17
Carbon Dioxide 27 mmol/L (22-30) 06/16/25 06:17
BUN 15 mg/dl (9-20) 06/16/25 06:17
Creatinine 0.7 mg/dL (0.7-1.3) 06/16/25 06:17
eGFR > 60.00 06/16/25 06:17
Glucose 111 mg/dl (70-99) H 06/16/25 06:17
Calcium 8.9 mg/dl (8.4-10.2) 06/16/25 06:17
Phosphorus 4.0 mg/dl (2.5-4.5) 06/14/25 03:45
Albumin 3.9 g/dl (3.5-5.0) 06/13/25 13:40
Physical Exam
-
Vital Signs:
Vital Signs
Temp Pulse Resp BP Pulse Ox
98 F 82 16 154/72 97
06/16/25 07:40 06/16/25 08:44 06/16/25 07:40 06/16/25 08:44 06/16/25 07:40
Cardiovascular:: Regular rate and rhythm
Respiratory:: Bilateral: Coarse
Lung Excursion:: Normal
Abdomen:: Nontender and Soft
Bowel Sounds:: Normal
Extremity Edema:: None: Bilateral:
[2025-06-16 15:30] VITALS: BP 146/71
[2025-06-16] MEDS: LIPITOR 10 MG PO (17:35)
[2025-06-16] MEDS: LOVENOX 40 MG SC (17:36)
[2025-06-16] MEDS: MELATONIN 5 MG PO (20:32)
[2025-06-16] MEDS: BENADRYL 25 MG PO (20:32)
[2025-06-16] MEDS: NEURONTIN 300 MG PO (20:32)
[2025-06-16 23:09] VITALS: BP 139/64
[2025-06-17] MEDS: TORADOL 15 MG IV (05:49)
[2025-06-17 06:27] LABS: Hematocrit 31.0 % (39.0-52.0); Hemoglobin 10.4 g/dL (13.0-18.0); Mean Corp Hgb Conc. 33.5 g/dL (33.0-37.0); Mean Corpuscular Volume 102.6 fL (80.0-94.0); Platelet Count 179 10^3/uL (130-400); Red Cell Dist. Width 11.9 % (11.5-14.5)
[2025-06-17 07:14] LABS: Sodium 132 mmol/L (135-145)
[2025-06-17 07:15] LABS: Blood Urea Nitrogen 20 mg/dl (9-20); Calcium 8.7 mg/dl (8.4-10.2); Carbon Dioxide 29 mmol/L (22-30); Chloride 100 mmol/L (98-107); Estimated Creatinine Clearance 81 ml/min; Glucose 102 mg/dl (70-99); Potassium 4.3 mmol/L (3.5-5.1); eGFR > 60.00
[2025-06-17 07:35] VITALS: BP 160/82
[2025-06-17] MEDS: ZOLOFT 75 MG PO (08:46)
[2025-06-17] MEDS: ZESTRIL 10 MG PO (08:46)
[2025-06-17] MEDS: NORVASC 10 MG PO (08:47)
[2025-06-17] MEDS: COLACE 100 MG PO (08:47)
[2025-06-17] MEDS: TOPROL XL 100 MG PO (08:47)
[2025-06-17] MEDS: MIRALAX PO (08:52)
--- NOTE | 2025-06-17 10:46 | W.PN.HOSP.TC ---
Today's Communication/Plan
-
Discharge today as per primary
Assessment / Plan
Assessment / Plan
HPI: 75-year-old male past medical history of bladder cancer status post chemotherapy, BPH, hypertension, hyperlipidemia, anxiety, former smoker, pericardial effusion, spinal stenosis, gallstones, diastolic murmur, mitral insufficiency, abdominal
aortic atherosclerosis, chronic anemia presenting with scheduled cystectomy, prostatectomy and partial ileum removal with placement of ileal conduit. �He has ileal conduit, Watkins catheter, TONI drain.
Vital signs normal except for hypoxemia 93%.
Patient noted to have crepitus of entire left lung. �Pain in the left upper chest.
Labs show hemoglobin of 11.5 improved from previously. �Chest x-ray shows bilateral subcutaneous emphysema moderate air under the right hemidiaphragm.
Continue to monitor TONI drain, urine output, trend hemoglobin. �Subcutaneous emphysema likely secondary to anesthesia. �Monitor for hypoxemia. �Urology following.
#Bladder cancer status post robotic radical cystectomy/prostatectomy/part of ileum with ileal conduit
#History of chemo x 4 sessions with [facility]
Continue urethral catheter. Monitor drainage from ileal conduit
Continue plan of care as per urology, TONI drain removed 06/16, urethral catheter removed 06/17
Continue pain meds, encourage ambulation, added MiraLAX
Discharge today as per primary
#Left-sided crepitus status post anesthesia
#History former smoker 31 pack a day quit 1999
93% RA slight left-sided pain
Appreciate coping machine operator input, patient's respiratory status is stable
#Chronic hyponatremia exacerbated by prostate surgery
#SIADH
Sodium 132 today, was 131, 128, was 126, he ranges from 125�132
Serum osmolality/urine studies reviewed, suggestive of possible SIADH, TSH/cortisol normal
Appreciate nephrology input, labs consistent with SIADH, sodium improved status post Samsca 06/15
Continue fluid restriction, trend sodium
Permanently discontinue salt tablets�patient informed
#Anemia�macrocytic likely secondary to recent chemo x 4 sessions
Monitor hemoglobin
#HTN
Continue amlodipine 10 mg daily, metoprolol succinate 100 mg daily lisinopril 10 mg daily with hold parameters
#HLD
Continue atorvastatin 10 mg every afternoon
#Anxiety
Continue lorazepam 0.5 mg as needed anxiety, okay to continue Zoloft per nephrology
#Mild/moderate MR/TR
#Abdominal aortic atherosclerosis
#History of pericardial effusion in past unsure year
Follows with [facility]
2D echo 05/03/2025: EF 65 to 70%, normal RVS RV SF, no AR, mild to moderate MR/TR PASP 54 mmHg
#Chronic back pain/sciatica/spinal stenosis
Continue gabapentin
#BPH status post TURP 12/19/2024
Status post prostatectomy 06/13/2025
Stopped Flomax
#History former alcoholic quit 1991
DVT prophylaxis- Subcu Lovenox
Total time spent to see the patient on the floor, examine the patient, review data and lab results, discuss treatment plan with patient, nursing staff around 38 minutes.
Physical Exam
General: No acute distress
HEENT: Normocephalic, Atraumatic, EOMI, MMM
Respiratory: Clear to Auscultation bilaterally
Chest wall: Crepitus in left upper chest
Cardiac: Normal S1/S2, Regular Rate and Rhythm
GI: Soft, appropriately tender, incisions dressed, urostomy in place
Extremities: No Clubbing, Cyanosis, or Edema
Neuro: Nonfocal/Grossly Intact
Anticipated Discharge: Today
Subjective/Interval History
-
Date of Service: June 17, 2025
Patient complains of abdominal pain. He denies chest pain, denies shortness of breath. No fever, no vomiting.
Objective Data
-
Labs:
Laboratory Results
06/17/25
06:09
WBC 6.0
Hgb 10.4 L
Hct 31.0 L
Plt Count 179
Sodium 132 L
Potassium 4.3
Chloride 100
Carbon Dioxide 29
BUN 20
Creatinine 0.8
Glucose 102 H
Calcium 8.7
Vital Signs:
Vital Signs
Temp Pulse Resp BP Pulse Ox
98.4 F 80 16 160/82 96
06/17/25 07:35 06/17/25 08:47 06/17/25 07:35 06/17/25 08:47 06/17/25 07:35
I&O
06/16/25 06/17/25 06/18/25
06:59 06:59 06:59
Intake Total 1120 / 1120 960 / 960
Output Total 5470 / 5470 1560 / 1560
Balance -4350 / -4350 -600 / -600
[2025-06-17 11:20] VITALS: BP 160/79
--- NOTE | 2025-06-17 12:36 | CM ---
Pt for dc today.
IMM issued and on chart.
Referral placed to [facility] and accepted.
No further needs were identified
== END 2025-06-17 12:59 | disposition home health service (06) | DRG 654 ==
LOC: 2 SOUTH 06:00
PROVIDERS: Family Medicine; Nurse Practitioner Family; ADMITTING PHYSICIAN Specialist; CONSULT PHYSICIAN Internal Medicine Critical Care Medicine; CONSULT PHYSICIAN Specialist; FAMILY PHYSICIAN Family Medicine
PROC: 8E0W4CZ Robotic Assisted Procedure of Trunk Region, Percutaneous Endoscopic Approach (ICD-10-PCS; 2025-06-13)
PROC: 0T1 Urinary System, Bypass (ICD-10-PCS; 2025-06-13)
PROC: 0TTB4ZZ Resection of Bladder, Percutaneous Endoscopic Approach (ICD-10-PCS; 2025-06-13)
PROC: 07BC4ZZ Excision of Pelvis Lymphatic, Percutaneous Endoscopic Approach (ICD-10-PCS; 2025-06-13)
PROC: 0VT04ZZ Resection of Prostate, Percutaneous Endoscopic Approach (ICD-10-PCS; 2025-06-13)
DX: C67.9 Malignant neoplasm of bladder, unspecified (principal); E22.2 Syndrome of inappropriate secretion of antidiuretic hormone; N40.0 Benign prostatic hyperplasia without lower urinary tract symptoms; I10 Essential (primary) hypertension; E78.00 Pure hypercholesterolemia, unspecified; F41.9 Anxiety disorder, unspecified; I34.0 Nonrheumatic mitral (valve) insufficiency; I70.0 Atherosclerosis of aorta; G89.29 Other chronic pain; M54.30 Sciatica, unspecified side; K59.00 Constipation, unspecified; R80.9 Proteinuria, unspecified; D64.81 Anemia due to antineoplastic chemotherapy; T81.82XA Emphysema (subcutaneous) resulting from a procedure, initial encounter; Y83.8 Other surgical procedures as the cause of abnormal reaction of the patient, or of later complication, without mention of misadventure at the time of the procedure; Y92.239 Unspecified place in hospital as the place of occurrence of the external cause; T45.1X5A Adverse effect of antineoplastic and immunosuppressive drugs, initial encounter; Y92.9 Unspecified place or not applicable; Z60.2 Problems related to living alone; Z80.3 Family history of malignant neoplasm of breast; Z80.8 Family history of malignant neoplasm of other organs or systems; Z87.891 Personal history of nicotine dependence; Z92.21 Personal history of antineoplastic chemotherapy; Z79.899 Other long term (current) drug therapy
CPT/HCPCS: 36415; 71045; 80048; 80053; 82533; 82570; 83735; 83930; 83935; 84100; 84156; 84300; 84443; 85014; 85018; 85025; 85027; 85610; 85730; 86850; 86900; 86901; 88305; 88307; 88309; 88331; 97161; C2617

== ENCOUNTER → 2025-07-02 10:50 | Outpatient (REF) | payer MEDICARE, OTHER, SELFPAY ==
[2025-07-02 11:37] LABS: Hematocrit 30.8 % (39.0-52.0); Hemoglobin 10.3 g/dL (13.0-18.0); Mean Corp Hgb Conc. 33.4 g/dL (33.0-37.0); Mean Corpuscular Volume 97.5 fL (80.0-94.0); Platelet Count 292 10^3/uL (130-400); Red Cell Dist. Width 12.2 % (11.5-14.5)
[2025-07-02 12:02] LABS: ALT (SGPT) 22 U/L (0-50); AST (SGOT) 22 U/L (17-59); Albumin 4.0 g/dl (3.5-5.0); Alkaline Phosphatase 51 U/L (38-126); Blood Urea Nitrogen 27 mg/dl (9-20); Calcium 9.4 mg/dl (8.4-10.2); Carbon Dioxide 27 mmol/L (22-30); Chloride 97 mmol/L (98-107); Glucose 102 mg/dl (70-99); Magnesium 1.8 mg/dl (1.6-2.3); Potassium 5.4 mmol/L (3.5-5.1); Sodium 129 mmol/L (135-145); Total Protein 6.7 g/dl (6.3-8.2); eGFR > 60.00
[2025-07-02 12:36] LABS: TSH 1.68 uIU/ml (0.47-4.68)
[2025-07-02 13:30] LABS: Nucleated Red Blood Cells % 0 % (-)
== END ==
LOC: REG 10:50
PROVIDERS: ATTENDING PHYSICIAN Internal Medicine Hematology & Oncology; FAMILY PHYSICIAN Family Medicine
DX: C67.4 Malignant neoplasm of posterior wall of bladder (principal); E03.9 Hypothyroidism, unspecified
CPT/HCPCS: 36415; 80053; 83735; 84443; 85025

== ENCOUNTER → 2025-08-03 10:38 | Outpatient (REF) | payer MEDICARE, OTHER, SELFPAY ==
[2025-08-03 11:09] LABS: Hematocrit 34.0 % (39.0-52.0); Hemoglobin 11.2 g/dL (13.0-18.0); Mean Corp Hgb Conc. 32.9 g/dL (33.0-37.0); Mean Corpuscular Volume 98.6 fL (80.0-94.0); Nucleated Red Blood Cells % 0 % (-); Platelet Count 245 10^3/uL (130-400); Red Cell Dist. Width 13.0 % (11.5-14.5)
[2025-08-03 11:35] LABS: ALT (SGPT) 19 U/L (0-50); AST (SGOT) 22 U/L (17-59); Albumin 4.2 g/dl (3.5-5.0); Alkaline Phosphatase 45 U/L (38-126); Blood Urea Nitrogen 25 mg/dl (9-20); Calcium 9.4 mg/dl (8.4-10.2); Carbon Dioxide 30 mmol/L (22-30); Chloride 98 mmol/L (98-107); Glucose 92 mg/dl (70-99); Magnesium 1.8 mg/dl (1.6-2.3); Potassium 4.8 mmol/L (3.5-5.1); Sodium 131 mmol/L (135-145); Total Protein 7.1 g/dl (6.3-8.2); eGFR > 60.00
[2025-08-03 12:06] LABS: TSH 2.20 uIU/ml (0.47-4.68)
== END ==
LOC: REG 10:38
PROVIDERS: ATTENDING PHYSICIAN Internal Medicine Hematology & Oncology; FAMILY PHYSICIAN Family Medicine
DX: C67.4 Malignant neoplasm of posterior wall of bladder (principal); Z51.12 Encounter for antineoplastic immunotherapy; Z13.29 Encounter for screening for other suspected endocrine disorder; E03.9 Hypothyroidism, unspecified; R53.82 Chronic fatigue, unspecified
CPT/HCPCS: 36415; 80053; 83735; 84443; 85025

== ENCOUNTER → 2025-08-31 10:34 | Outpatient (REF) | payer MEDICARE, OTHER, SELFPAY ==
[2025-08-31 11:38] LABS: Hematocrit 33.1 % (39.0-52.0); Hemoglobin 11.1 g/dL (13.0-18.0); Mean Corp Hgb Conc. 33.5 g/dL (33.0-37.0); Mean Corpuscular Volume 95.1 fL (80.0-94.0); Nucleated Red Blood Cells % 0 % (-); Platelet Count 228 10^3/uL (130-400); Red Cell Dist. Width 13.9 % (11.5-14.5)
[2025-08-31 12:56] LABS: ALT (SGPT) 20 U/L (0-50); AST (SGOT) 24 U/L (17-59); Albumin 4.2 g/dl (3.5-5.0); Alkaline Phosphatase 40 U/L (38-126); Blood Urea Nitrogen 28 mg/dl (9-20); Calcium 9.2 mg/dl (8.4-10.2); Carbon Dioxide 27 mmol/L (22-30); Chloride 96 mmol/L (98-107); Glucose 96 mg/dl (70-99); Magnesium 1.8 mg/dl (1.6-2.3); Potassium 4.5 mmol/L (3.5-5.1); Sodium 132 mmol/L (135-145); Total Protein 6.7 g/dl (6.3-8.2); eGFR > 60.00
[2025-08-31 14:17] LABS: TSH 2.68 uIU/ml (0.47-4.68)
[2025-08-31 14:53] LABS: Folate 3.8 ng/ml (2.76-20); Vitamin B12 476 pg/ml (239-931)
== END ==
LOC: REG 10:34
PROVIDERS: ATTENDING PHYSICIAN Internal Medicine Hematology & Oncology; FAMILY PHYSICIAN Family Medicine; OTHER PHYSICIAN Specialist
DX: C67.4 Malignant neoplasm of posterior wall of bladder (principal); Z51.12 Encounter for antineoplastic immunotherapy; Z13.29 Encounter for screening for other suspected endocrine disorder; E03.9 Hypothyroidism, unspecified; C67.9 Malignant neoplasm of bladder, unspecified; Z93.6 Other artificial openings of urinary tract status; D51.9 Vitamin B12 deficiency anemia, unspecified; E53.8 Deficiency of other specified B group vitamins
CPT/HCPCS: 36415; 80053; 82607; 82746; 83735; 84443; 85025